=== PATIENT | male | born 1975 | race Hispanic/Latino ===

== ENCOUNTER 2018-08-18 10:17 | Inpatient (IN) | payer BC, SELFPAY ==
[2018-08-18] MEDS ORDERED: Acetaminophen 500 MG TAB ONE (10:55)
[2018-08-18] MEDS ORDERED: cefTRIAXone\\ROCEPHIN 1 GM VIAL ONE ×2 (10:55→11:29)
[2018-08-18] MEDS ORDERED: Sodium Chloride 0.9% 100 ML ONE ×2 (10:56→11:29)
[2018-08-18 11:10] LABS: ALT (SGPT) 55 U/L (8-55); AST (SGOT) 44 U/L (5-34); Albumin 3.7 g/dL (3.5-5.0); Alkaline Phosphatase 71 U/L (40-150); Anion Gap 20 mmol/L (10-20); BUN (Urea Nitrogen) 33 mg/dL (8.9-20.6); Bilirubin, Total 1.2 mg/dL (0.2-1.2); Calc. Creatinine Clearance 0 mL/min (70-130); Calcium 9.6 mg/dL (7.8-10.44); Carbon Dioxide 25 mmol/L (22-29); Chloride 100 mmol/L (98-107); Estimated GFR-MDRD 41; Globulin 4.2 g/dL (2.4-3.5); Glucose 142 mg/dL (70-105); Potassium 3.8 mmol/L (3.5-5.1); Protein, Total 7.9 g/dL (6.0-8.3); Sodium 141 mmol/L (136-145)
[2018-08-18 11:23] LABS: Bilirubin Negative (Negative); Blood, Urine Small (Negative); Clarity CLOUDY (Clear); Glucose, Urine (Dipstick) Negative (Negative); Leukocyte Negative (Negative); Nitrite Negative (Negative); Protein, Urine (Dipstick) 100 mg/dL (Neg-Trace); Specific Gravity, Urine 1.029 (1.002-1.036); pH, Urine 5.5 (5.0-9.0)
[2018-08-18 11:24] LABS: Bacteria/HPF None Seen HPF (None Seen); RBC/HPF 0-3 HPF (0-3)
[2018-08-18 11:26] LABS: Pathc Cast-AUWi Flag 6.83 (0-2.49); Yeast-AUWi Flag 101.4 (0-25.0)
[2018-08-18] MEDS ORDERED: Azithromycin 500 MG VIAL ONE (11:29)
--- NOTE | 2018-08-18 11:30 | RAD ---
SINGLE VIEW OF THE CHEST: COMPARISON: 08/18/2018. HISTORY: Pneumonia and cough. FINDINGS: A single view of the chest shows a normal-size cardiomediastinal silhouette. There is an infiltrate in the right lower lobe consistent with right lower lobe pneumonia. This has not changed compared to the prior exam. IMPRESSION: Stable right lower lobe pneumonia. POS: YOHANNES
[2018-08-18 11:36] LABS: Hyaline Casts/LPF 0-3 HYALINE CAST LPF (0-3 Hyaline); Other Casts/LPF 0-3 COARSE GRAN LPF (0-3 Hyaline); Yeast-All Forms None Seen HPF (None Seen)
[2018-08-18 11:37] LABS: Crystals/HPF 1+ AMORPH URATES HPF (Negative); WBC/HPF 0-3 HPF (0-3)
[2018-08-18 11:40] LABS: Band 34 % (5-11); Hemoglobin 14.6 g/dL (14.0-18.0); Large Platelets MODERATE; Lymphocytes 6 % (21-51); MDiff Complete? YES; Mean Corpuscular HGB CONC 32.8 g/dL (32.0-36.0); Mean Corpuscular Hemoglobin 29.6 pg (27.0-31.0); Mean Corpuscular Volume 90.2 fL (78.0-98.0); Metamyelocyte 6 % (0-0); Monocytes 18 % (0-10); Myelocyte 2 % (0-0); Neutrophil 30 % (42-75); Platelet Count 154 thou/uL (130-400); Platelet Morphology Comment Appears Decreased; RBC Distribution Width 12.2 % (11.5-14.5); RBC Morphology Normal; Reactive Lymphocytes 4 % (0-10); Red Blood Cell (RBC) Count 4.95 mill/uL (4.70-6.10); Toxic Granulation SLIGHT
--- NOTE | 2018-08-18 13:28 | HP ---
PRIMARY CARE PHYSICIAN: Dr. Elinor Patel. REASON FOR ADMISSION: Sepsis, acute kidney failure, community-acquired pneumonia. HISTORY OF PRESENT ILLNESS: A 42-year-old male, who has no significant past medical history, who is sick for about one week. He reports that last week seven days ago, one weekend, Monday and Monday; he started having upper respiratory infection symptoms with runny nose, sore throat. Subsequently, he was having dry cough. He was feeling congested in his nose. He was trying [id number] medication with Mucinex and Tylenol PM. He was also taking periodically Aleve morning and evening on daily basis. He was subsequently noticed that his sputum changed to yellowish brown in nature. On , he went to local urgent care and he was evaluated in Urgent Care and he was suspected for viral illness. He was not given any antibiotic prescription. On that day, the patient was having vomiting and in the evening time, he started having diarrhea which he had intermittently till today. night, he started having fever with chills. He was initially taking Tylenol and Motrin p.r.n. basis, but his condition continued to deteriorate yesterday and last night he was having high-grade fever. He started having pleuritic chest pain. He was also experiencing high myalgia, body ache and headache. He was also feeling dizziness. He denies any UTI symptoms. He denies any melena or hematochezia, but he does have diarrhea. The patient also reports that when they went to Urgent Care at that time, flu was checked, it was negative and today in our emergency room, flu was also negative. Today, the patient had a chest x-ray, which showed right lower lobe pneumonia. The patient also has associated bandemia, acute kidney injury, lactic acidosis. He is meeting sepsis criteria. He is tachycardic in the emergency room. We are admitting this patient for further care. REVIEW OF SYSTEMS: CONSTITUTIONAL: Negative for weight loss or gain, ability to conduct usual activities. SKIN: Negative for rash, itching. EYES: Negative for double vision, pain. ENT/MOUTH: Negative for nose bleeding, neck stiffness, pain, tenderness. CARDIOVASCULAR: Negative for palpitations, dyspnea on exertion, orthopnea. RESPIRATORY: Negative for shortness of breath, wheezing, cough, hemoptysis, fever or night sweats. GASTROINTESTINAL: Negative for poor appetite, abdominal pain, heartburn, nausea, vomiting, constipation, or diarrhea. GENITOURINARY: Negative for urgency, frequency, dysuria, nocturia. MUSCULOSKELETAL: Negative for pain, swelling. NEUROLOGIC/PSYCHIATRIC: Negative for anxiety, depression. ALLERGY/IMMUNOLOGIC: Negative for skin rash, bleeding tendency. Please see my HPI for pertinent positives and negatives. All other review of systems reviewed and negative except as mentioned in HPI. PAST MEDICAL HISTORY: History of nephrolithiasis, hypertension. PAST SURGICAL HISTORY: Herniated disk surgery. PAST PSYCHIATRIC HISTORY: Reviewed and negative. SOCIAL HISTORY: The patient drinks alcohol socially. He denies any smoking. He denies any other illicit drug abuse. He is . FAMILY HISTORY: No family history of coronary artery disease, stroke, or cancer. ALLERGIES: NO KNOWN DRUG ALLERGIES. CURRENT HOME MEDICATIONS: The patient was recently taking [id number] medication, but he is not taking any ongoing basis any medication. EMERGENCY ROOM COURSE: The patient has received Rocephin, azithromycin, DuoNeb therapy, Tylenol, and IV fluid. PHYSICAL EXAMINATION: VITAL SIGNS: On arrival; blood pressure 106/75, pulse 117, respiratory rate 28, temperature 99.6, and saturation 88% on room air, 92% on oxygen. Weight 119.29 kg. GENERAL: The patient is currently alert, awake, mild respiratory distress. HEENT: Head; normocephalic, atraumatic. Eyes; pupils round, reactive to light. Extraocular muscle intact. ENT; oropharynx within normal limits. Moist mucous membranes. No oral lesion. No pharyngeal erythema. No exudate. NECK: Supple. No JVD. No thyromegaly. No carotid bruit. LUNGS: Bibasilar rales noted more on the right side. No wheezing. No accessory muscles of respiration in use. CARDIAC: S1, S2 regular. Tachycardia. No murmur. No gallop. No rub. ABDOMEN: Obesity present. Bowel sounds present. Nontender. Nondistended. No organomegaly. No mass. No suprapubic tenderness. BACK: Unremarkable. No CVA tenderness. EXTREMITIES: Upper extremities, passive movement of all joints are normal; lower extremity, no edema. No calf tenderness. Good distal pulsation. SKIN: No skin rash. HEMATOLOGICAL SYSTEM: No lymphadenopathy. NEUROLOGIC: Nonfocal examination. PSYCHIATRIC: Normal affect. SIGNIFICANT LABORATORY DATA: EKG showing sinus tachycardia. Chest x-ray showing right lower lobe pneumonia. CBC; WBC 5.0, hemoglobin 14.6, platelet 154 with bandemia 34%. BMP; sodium 141, potassium 3.8, chloride 100, carbon dioxide 25, BUN 33, creatinine 1.84, glucose 142, calcium 9.6. LFT; AST 44, ALT 55, alkaline phosphatase 71, albumin 3.7. Lactic acid 4.3. Urinalysis unremarkable. ASSESSMENT AND PLAN: 1. Acute respiratory failure with hypoxia secondary to community-acquired pneumonia. The patient's oxygen saturation was 88% on room air and currently improved with nasal cannula oxygen. We will monitor his oxygen saturation and need for any oxygen requirement while in the hospital. 2. Acute kidney failure, likely due to prerenal etiology secondary to sepsis as well as his intermittent NSAID use. We will continue with IV fluid and we will repeat labs tomorrow. 3. Lactic acidosis, likely due to sepsis. We will repeat lactic acid later on today and as well as tomorrow morning. 4. Sepsis with acute organ dysfunction. The patient meets sepsis criteria with bandemia, tachycardia, tachypnea, fever, acute kidney failure, lactic acidosis and acute respiratory failure. The patient's source of infection is pneumonia, which is community-acquired pneumonia. The patient is already started on broad-spectrum antibiotic therapy with Rocephin and Levaquin. 5. Community-acquired pneumonia, right lower lobe, suspecting from streptococcus pneumoniae versus atypical pathogen. The patient will be given Rocephin and levofloxacin. We will continue with IV fluid. We will give him Solu-Medrol 40 mg IV q.8 hourly three doses. DuoNeb therapy will be given as needed. We will monitor on telemetry floor. 6. History of chronic low back pain. 7. History of morbid obesity. Dietary education given. Weight loss education given. 8. History of hypertension, but currently low blood pressure. We will monitor while in hospital. 9. DVT prophylaxis. Lovenox 40 mg subcu daily. 10. Gastrointestinal prophylaxis. Pepcid 20 mg p.o. b.i.d. CODE STATUS: The patient is full code. The patient's is surrogate decision maker. DISPOSITION PLAN: Based on clinical course, we are expecting the patient's stay in hospital more than 2 midnights. Plan of care discussed with the patient and his at bedside. We will also check urine Legionella and urine streptococcus pneumoniae antigen as well as viral panel. Job ID: [id number]
[2018-08-18] MEDS ORDERED: Acetaminophen 325 MG TAB PO PRN (14:20)
[2018-08-18] MEDS ORDERED: Ondansetron ODT 4 MG TAB SL PRN (14:20)
[2018-08-18] MEDS ORDERED: Ondansetron PF 4 MG/2 ML Vial IVP PRN (14:20)
[2018-08-18] MEDS ORDERED: Sodium Chloride 0.9% 1,000 ML IV SCH (14:20)
[2018-08-18] MEDS ORDERED: Sodium Chloride 0.65% Nasal 44 ML BOT EA NARE PRN (14:24)
[2018-08-18] MEDS ORDERED: Zolpidem Tartrate 5 MG TAB PO PRN (14:24)
[2018-08-18] MEDS ORDERED: Artificial Tears 18 DROP/0.9 ML EA EYE PRN (14:24)
[2018-08-18] MEDS ORDERED: Bisacodyl 5 MG TAB PO PRN (14:24)
[2018-08-18] MEDS ORDERED: Senokot S 8.6-50 MG TAB PO PRN (14:24)
[2018-08-18] MEDS ORDERED: Loratadine 10 MG TAB PO PRN (14:24)
[2018-08-18] MEDS ORDERED: Loperamide HCl 2 MG CAP PO PRN (14:24)
[2018-08-18] MEDS ORDERED: Bisacodyl 10 MG SUPP PR PRN (14:24)
[2018-08-18] MEDS ORDERED: Cepastat Lozenges 1 LOZ PO PRN (14:24)
[2018-08-18] MEDS ORDERED: Calcium Carbonate 500 MG ChewTAB PO PRN (14:24)
[2018-08-18] MEDS ORDERED: Eucerin (Mineral Oil/Petrolatum,White) 30 gm Jar TOP PRN (14:24)
[2018-08-18] MEDS ORDERED: hydrALAZINE 20 MG/ML VIAL SLOW IVP PRN (14:24)
[2018-08-18 15:14] LABS: Lactic Acid 3.9 mmol/L (0.5-2.2)
[2018-08-18] MEDS: Sodium Chloride 0.9% 1,000 ML IV SCH (16:01)
[2018-08-18] MEDS: methylPREDNISolone Sod Succ 40 MG VIAL IVP SCH ×2 (16:02→22:24)
[2018-08-18] MEDS: Acetaminophen 325 MG TAB PO PRN (16:10)
[2018-08-18] MEDS: Bacteriostatic Water 30 ML VIAL FS SCH ×2 (16:10→22:23)
[2018-08-18 17:23] LABS: Bilirubin Negative (Negative); Blood, Urine Trace (Negative); Clarity CLEAR (Clear); Glucose, Urine (Dipstick) Negative (Negative); Leukocyte Negative (Negative); Nitrite Negative (Negative); Protein, Urine (Dipstick) 100 mg/dL (Neg-Trace); Specific Gravity, Urine 1.022 (1.002-1.036)
[2018-08-18 17:26] LABS: Bacteria/HPF None Seen HPF (None Seen); Hyaline Casts/LPF 4-6 HYALINE CAST LPF (0-3 Hyaline); Pathc Cast-AUWi Flag 0.58 (0-2.49); Squamous Epithelial 0-3 HPF (0-3)
[2018-08-18 17:27] LABS: Yeast-AUWi Flag 136.9 (0-25.0)
[2018-08-18 17:40] LABS: Strep pneumo Urine Ag POSITIVE (NEGATIVE)
[2018-08-18 17:45] LABS: Crystals/HPF 1+ AMORPH URATES HPF (Negative); Yeast-All Forms None Seen HPF (None Seen)
[2018-08-18 17:49] LABS: Legionella Urinary Ag Negative (Negative)
[2018-08-18] MEDS: Famotidine 20 MG TAB PO SCH (20:47)
[2018-08-18] MEDS: guaiFENesin ER 600 MG TAB PO SCH (20:47)
[2018-08-18] MEDS: HYDROcodone/Acetaminophen 5/325 mg Tablet PO PRN (20:48)
[2018-08-19] MEDS: Sodium Chloride 0.9% 1,000 ML IV SCH ×3 (00:23→20:04)
[2018-08-19 05:50] LABS: Band 51 % (5-11); Hemoglobin 12.2 g/dL (14.0-18.0); Lymphocytes 11 % (21-51); MDiff Complete? YES; Mean Corpuscular HGB CONC 32.6 g/dL (32.0-36.0); Mean Corpuscular Hemoglobin 29.7 pg (27.0-31.0); Metamyelocyte 1 % (0-0); Monocytes 2 % (0-10); Neutrophil 35 % (42-75); Platelet Count 148 thou/uL (130-400); Platelet Morphology Comment Appears Adequate; RBC Distribution Width 12.4 % (11.5-14.5); White Blood Cell (WBC) Count 4.9 thou/uL (4.8-10.8)
[2018-08-19 05:56] LABS: Lactic Acid 2.1 mmol/L (0.5-2.2)
[2018-08-19 05:57] LABS: ALT (SGPT) 47 U/L (8-55); AST (SGOT) 39 U/L (5-34); Albumin 3.1 g/dL (3.5-5.0); Alkaline Phosphatase 56 U/L (40-150); Anion Gap 16 mmol/L (10-20); BUN (Urea Nitrogen) 21 mg/dL (8.9-20.6); Bilirubin, Total 0.6 mg/dL (0.2-1.2); Calc. Creatinine Clearance 153 mL/min (70-130); Calcium 8.7 mg/dL (7.8-10.44); Carbon Dioxide 21 mmol/L (22-29); Chloride 107 mmol/L (98-107); Estimated GFR-MDRD 75; Globulin 3.3 g/dL (2.4-3.5); Glucose 159 mg/dL (70-105); Potassium 3.6 mmol/L (3.5-5.1); Protein, Total 6.4 g/dL (6.0-8.3); Sodium 140 mmol/L (136-145)
[2018-08-19] MEDS: methylPREDNISolone Sod Succ 40 MG VIAL IVP SCH (06:25)
[2018-08-19] MEDS: Bacteriostatic Water 30 ML VIAL FS SCH (06:25)
[2018-08-19] MEDS: Famotidine 20 MG TAB PO SCH ×2 (09:14→20:03)
[2018-08-19] MEDS: guaiFENesin ER 600 MG TAB PO SCH ×2 (09:14→20:03)
[2018-08-19] MEDS: Enoxaparin Sodium 40 MG/0.4 ML SYRINGE SC SCH (09:15)
--- NOTE | 2018-08-19 10:07 | PDOC.PN ---
- Subjective Encounter Start Date: 08/19/18 Encounter Start Time: 07:15 -: old records requested/rev pt has cough, dyspnea, less pleuritic chest pain - Objective Resuscitation Status - Order Detail: 08/18/18 12:29 Resuscitation Status Routine Resuscitation Status: FULL: Full Resuscitation MAR Reviewed: Yes Vital Signs & Weight: Vital Signs (12 hours) Temp Pulse Resp BP BP Pulse Ox 08/19/18 07:25 98.3 F 90 18 128/73 94 L 08/19/18 07:07 94 L 08/19/18 07:05 91 20 08/19/18 04:20 97.5 F L 89 24 H 125/81 92 L 08/18/18 23:05 98.2 F 103 H 18 122/72 93 L Weight Weight 270 lb 9.6 oz I&O: 08/18/18 08/19/18 08/20/18 06:59 06:59 06:59 Intake Total 3110 Output Total 400 Balance 2710 Result Diagrams: 08/19/18 04:46 08/19/18 04:46 EKG Reviewed by me: Yes (nsr) Phys Exam - Physical Examination Constitutional: NAD HEENT: PERRLA, moist MMs, sclera anicteric Neck: no JVD, supple bilateral scattered rales+ Cardiovascular: RRR, no significant murmur, no rub Gastrointestinal: soft, non-tender, no distention, positive bowel sounds Musculoskeletal: no edema, pulses present Neurological: non-focal, normal sensation, moves all 4 limbs Lymphatic: no nodes Psychiatric: normal affect, A&O x 3 Skin: no rash, normal turgor Dx/Plan (1) Acute kidney failure Status: Acute (2) Acute respiratory failure with hypoxemia Code(s): J96.01 - ACUTE RESPIRATORY FAILURE WITH HYPOXIA Status: Acute (3) Bacteremia due to Streptococcus pneumoniae Code(s): R78.81 - BACTEREMIA Status: Acute (4) Infection due to human metapneumovirus (hMPV) Code(s): B97.81 - HUMAN METAPNEUMOVIRUS THE CAUSE OF DISEASES CLASSD ELSWHR Status: Acute (5) Lactic acidosis Code(s): E87.2 - ACIDOSIS Status: Acute (6) Sepsis with acute organ dysfunction Code(s): A41.9 - SEPSIS, UNSPECIFIED ORGANISM; R65.20 - SEVERE SEPSIS WITHOUT SEPTIC SHOCK Status: Acute (7) Streptococcal pneumonia Code(s): J15.4 - PNEUMONIA DUE TO OTHER STREPTOCOCCI Status: Acute (8) Obesity (BMI 30-39.9) Code(s): E66.9 - OBESITY, UNSPECIFIED Status: Chronic - Plan cont current plan of care, continue antibiotics, respiratory therapy * continue rocephin and levaquin * continue IVF * will repeat labs tomorrow * medication reviewed as below * symptomatic treatment. * will monitor Review of Systems - Review of Systems Constitutional: weakness. negative: fever, chills, sweats, malaise, other ENT: negative: Ear Pain, Ear Discharge, Nose Pain, Nose Discharge, Nose Congestion, Mouth Pain, Mouth Swelling, Throat Pain, Throat Swelling, Other Respiratory: Cough, Shortness of Breath, SOB with Excertion, Pleuritic Pain. negative: Dry, Hemoptysis, Sputum, Wheezing Cardiovascular: negative: chest pain, palpitations, orthopnea, paroxysmal nocturnal dyspnea, edema, light headedness, other Gastrointestinal: negative: Nausea, Vomiting, Abdominal Pain, Diarrhea, Constipation, Melena, Hematochezia, Other Genitourinary: negative: Dysuria, Frequency, Incontinence, Hematuria, Retention , Other Musculoskeletal: negative: Neck Pain, Shoulder Pain, Arm Pain, Back Pain, Hand Pain, Leg Pain, Foot Pain, Other - Medications/Allergies Allergies/Adverse Reactions: Allergies Allergy/AdvReac Type Severity Reaction Status Date / Time No Known Allergies Allergy Verified 08/18/18 14:29 Medications: Current Medications Acetaminophen (Tylenol) 650 mg PO Q4H PRN PRN Reason: Headache/Fever/Mild Pain (1-3) Last Admin: 08/18/18 16:10 Dose: 650 mg Hydrocodone Bitart/Acetaminophen ([place] 5/325) 1 tab PO Q4H PRN PRN Reason: Moderate Pain (4-6) Last Admin: 08/18/18 20:48 Dose: 1 tab Albuterol/Ipratropium (Duoneb) 3 ml NEB [id number] JOVANNA Last Admin: 08/19/18 07:05 Dose: 3 ml Albuterol/Ipratropium (Duoneb) 3 ml NEB [id number] PRN PRN Reason: SOB &/or Wheezing Artificial Tears (Tears Naturale) 2 drop EA EYE PRN PRN PRN Reason: Dry Eyes Bisacodyl (Dulcolax) 10 mg PO DAILYPRN PRN PRN Reason: Constipation Bisacodyl (Dulcolax) 10 mg [place] DAILYPRN PRN PRN Reason: Constipation Calcium Carbonate (Tums) 1,000 mg PO Q4H PRN PRN Reason: Heartburn or Indigestion Enoxaparin Sodium (Lovenox) 40 mg SC 0900 [facility] Last Admin: 08/19/18 09:15 Dose: 40 mg Famotidine (Pepcid) 20 mg PO BID [facility] Last Admin: 08/19/18 09:14 Dose: 20 mg Guaifenesin (Mucinex) 600 mg PO Q12HR [facility] Last Admin: 08/19/18 09:14 Dose: 600 mg Guaifenesin (Robitussin Sf) 200 mg PO Q4H PRN PRN Reason: Cough Hydralazine HCl (Apresoline) 10 mg SLOW IVP Q4H PRN PRN Reason: SBP > 180 and HR < 70 Ceftriaxone Sodium 2 gm/ (Sodium Chloride) 100 mls @ 200 mls/hr IVPB 1100 [facility] Levofloxacin 750 mg/ Device 150 mls @ 100 mls/hr IVPB 1500 [facility] Last Admin: 08/18/18 16:03 Dose: 150 mls Sodium Chloride (Normal Saline 0.9%) 1,000 mls @ 125 mls/hr IV .Q8H [facility] Last Admin: 08/19/18 09:14 Dose: 1,000 mls Loperamide HCl (Imodium) 2 mg PO PRN PRN PRN Reason: Diarrhea/Loose Stools Loratadine (Claritin) 10 mg PO DAILYPRN PRN PRN Reason: Sinus Symptoms Mineral Oil/White Petrolatum (Eucerin Cream) 0 gm TOP BIDPRN PRN PRN Reason: Dry Skin Senna/Docusate Sodium (Senokot S) 2 tab PO BID PRN PRN Reason: Constipation Sodium Chloride (Flush - Normal Saline) 10 ml IVF PRN PRN PRN Reason: Saline Flush Last Admin: 08/18/18 22:24 Dose: 10 ml Sodium Chloride ([place] Nasal [place] 0.65%) 0 ml EA NARE QIDPRN PRN PRN Reason: Nasal Congestion Throat Lozenges (Cepastat Lozenges) 1 chantal PO Q2H PRN PRN Reason: Sore Throat Zolpidem Tartrate (Ambien) 5 mg PO HSPRN PRN PRN Reason: Insomnia
[2018-08-19] MEDS: cefTRIAXone\\ROCEPHIN 2 GM in Sodium Chloride 0.9% 100 ML IVPB SCH (12:24)
[2018-08-20] MEDS: HYDROcodone/Acetaminophen 5/325 mg Tablet PO PRN ×2 (02:11→14:19)
[2018-08-20] MEDS: Sodium Chloride 0.9% 1,000 ML IV SCH (02:11)
[2018-08-20 06:15] LABS: Band 8 % (5-11); Hemoglobin 12.3 g/dL (14.0-18.0); Hypochromia SLIGHT = 6-15 cells (100X) (0-5/hpf); Lymphocytes 15 % (21-51); MDiff Complete? YES; Mean Corpuscular HGB CONC 32.6 g/dL (32.0-36.0); Mean Corpuscular Hemoglobin 29.7 pg (27.0-31.0); Mean Corpuscular Volume 91.1 fL (78.0-98.0); Mean Platelet Volume 9.1 fL (7.4-10.4); Monocytes 7 % (0-10); Neutrophil 70 % (42-75); Platelet Count 175 thou/uL (130-400); Platelet Morphology Comment Appears Adequate; RBC Distribution Width 12.4 % (11.5-14.5); Red Blood Cell (RBC) Count 4.15 mill/uL (4.70-6.10); White Blood Cell (WBC) Count 9.7 thou/uL (4.8-10.8)
[2018-08-20 06:20] LABS: ALT (SGPT) 45 U/L (8-55); AST (SGOT) 40 U/L (5-34); Alkaline Phosphatase 71 U/L (40-150); Anion Gap 14 mmol/L (10-20); BUN (Urea Nitrogen) 22 mg/dL (8.9-20.6); Bilirubin, Total 0.4 mg/dL (0.2-1.2); Calc. Creatinine Clearance 155 mL/min (70-130); Calcium 8.7 mg/dL (7.8-10.44); Carbon Dioxide 21 mmol/L (22-29); Chloride 109 mmol/L (98-107); Estimated GFR-MDRD 75; Globulin 3.6 g/dL (2.4-3.5); Glucose 149 mg/dL (70-105); Potassium 3.5 mmol/L (3.5-5.1); Protein, Total 6.6 g/dL (6.0-8.3); Sodium 140 mmol/L (136-145)
--- NOTE | 2018-08-20 09:42 | PDOC.PN ---
- Subjective Encounter Start Date: 08/20/18 Encounter Start Time: 08:20 Patient seen and examined. No new complaints. No overnight events has cough, no fever - Objective Resuscitation Status - Order Detail: 08/18/18 12:29 Resuscitation Status Routine Resuscitation Status: FULL: Full Resuscitation MAR Reviewed: Yes Vital Signs & Weight: Vital Signs (12 hours) Temp Pulse Resp BP Pulse Ox 08/20/18 07:20 97.5 F L 80 20 133/76 93 L 08/20/18 06:53 92 L 08/20/18 06:51 83 16 92 L 08/20/18 03:40 97.8 F 80 24 H 134/68 94 L Weight Weight 270 lb 9.6 oz I&O: 08/19/18 08/20/18 08/21/18 06:59 06:59 06:59 Intake Total 3110 4850 Output Total 400 1575 Balance 2710 3275 Result Diagrams: 08/20/18 04:56 08/20/18 04:56 EKG Reviewed by me: Yes (nsr) Phys Exam - Physical Examination Constitutional: NAD HEENT: PERRLA, moist MMs, sclera anicteric Neck: no JVD, supple Respiratory: no wheezing, no rhonchi rales+ Cardiovascular: RRR, no significant murmur, no rub Gastrointestinal: soft, non-tender, no distention, positive bowel sounds Musculoskeletal: no edema, pulses present Neurological: non-focal, normal sensation, moves all 4 limbs Lymphatic: no nodes Psychiatric: normal affect, A&O x 3 Skin: no rash, normal turgor Dx/Plan (1) Acute kidney failure Status: Resolved (2) Acute respiratory failure with hypoxemia Code(s): J96.01 - ACUTE RESPIRATORY FAILURE WITH HYPOXIA Status: Acute (3) Bacteremia due to Streptococcus pneumoniae Code(s): R78.81 - BACTEREMIA Status: Acute (4) Infection due to human metapneumovirus (hMPV) Code(s): B97.81 - HUMAN METAPNEUMOVIRUS THE CAUSE OF DISEASES CLASSD ELSWHR Status: Acute (5) Lactic acidosis Code(s): E87.2 - ACIDOSIS Status: Resolved (6) Sepsis with acute organ dysfunction Code(s): A41.9 - SEPSIS, UNSPECIFIED ORGANISM; R65.20 - SEVERE SEPSIS WITHOUT SEPTIC SHOCK Status: Acute (7) Streptococcal pneumonia Code(s): J15.4 - PNEUMONIA DUE TO OTHER STREPTOCOCCI Status: Acute (8) Obesity (BMI 30-39.9) Code(s): E66.9 - OBESITY, UNSPECIFIED Status: Chronic - Plan cont current plan of care, continue antibiotics * DC Tele * DC IVF * transfer to medical * continue rocephin and levaquin * tomorrow repeat chest xray * tomorrow repeat blood culture along with labs * medication reviewed as below * symptomatic treatment. Review of Systems - Review of Systems Constitutional: negative: fever, chills, sweats, weakness, malaise, other Respiratory: Cough, Shortness of Breath, SOB with Excertion. negative: Dry, Hemoptysis, Pleuritic Pain, Sputum, Wheezing Cardiovascular: negative: chest pain, palpitations, orthopnea, paroxysmal nocturnal dyspnea, edema, light headedness, other Gastrointestinal: negative: Nausea, Vomiting, Abdominal Pain, Diarrhea, Constipation, Melena, Hematochezia, Other Genitourinary: negative: Dysuria, Frequency, Incontinence, Hematuria, Retention , Other Musculoskeletal: negative: Neck Pain, Shoulder Pain, Arm Pain, Back Pain, Hand Pain, Leg Pain, Foot Pain, Other Skin: negative: Rash, Lesions, Ant, Bruising, Other - Medications/Allergies Allergies/Adverse Reactions: Allergies Allergy/AdvReac Type Severity Reaction Status Date / Time No Known Allergies Allergy Verified 08/18/18 14:29 Medications: Current Medications Acetaminophen (Tylenol) 650 mg PO Q4H PRN PRN Reason: Headache/Fever/Mild Pain (1-3) Last Admin: 08/18/18 16:10 Dose: 650 mg Hydrocodone Bitart/Acetaminophen ([place] 5/325) 1 tab PO Q4H PRN PRN Reason: Moderate Pain (4-6) Last Admin: 08/20/18 02:11 Dose: 1 tab Albuterol/Ipratropium (Duoneb) 3 ml NEB [id number] JOVANNA Last Admin: 08/20/18 06:51 Dose: 3 ml Albuterol/Ipratropium (Duoneb) 3 ml NEB [id number] PRN PRN Reason: SOB &/or Wheezing Artificial Tears (Tears Naturale) 2 drop EA EYE PRN PRN PRN Reason: Dry Eyes Bisacodyl (Dulcolax) 10 mg PO DAILYPRN PRN PRN Reason: Constipation Bisacodyl (Dulcolax) 10 mg [place] DAILYPRN PRN PRN Reason: Constipation Calcium Carbonate (Tums) 1,000 mg PO Q4H PRN PRN Reason: Heartburn or Indigestion Enoxaparin Sodium (Lovenox) 40 mg SC 0900 [facility] Last Admin: 08/19/18 09:15 Dose: 40 mg Famotidine (Pepcid) 20 mg PO BID [facility] Last Admin: 08/19/18 20:03 Dose: 20 mg Guaifenesin (Mucinex) 600 mg PO Q12HR [facility] Last Admin: 08/19/18 20:03 Dose: 600 mg Guaifenesin (Robitussin Sf) 200 mg PO Q4H PRN PRN Reason: Cough Hydralazine HCl (Apresoline) 10 mg SLOW IVP Q4H PRN PRN Reason: SBP > 180 and HR < 70 Ceftriaxone Sodium 2 gm/ (Sodium Chloride) 100 mls @ 200 mls/hr IVPB 1100 [facility] Last Admin: 08/19/18 12:24 Dose: 100 mls Levofloxacin 750 mg/ Device 150 mls @ 100 mls/hr IVPB 1500 [facility] Last Admin: 08/19/18 14:50 Dose: 150 mls Loperamide HCl (Imodium) 2 mg PO PRN PRN PRN Reason: Diarrhea/Loose Stools Loratadine (Claritin) 10 mg PO DAILYPRN PRN PRN Reason: Sinus Symptoms Mineral Oil/White Petrolatum (Eucerin Cream) 0 gm TOP BIDPRN PRN PRN Reason: Dry Skin Senna/Docusate Sodium (Senokot S) 2 tab PO BID PRN PRN Reason: Constipation Sodium Chloride (Flush - Normal Saline) 10 ml IVF PRN PRN PRN Reason: Saline Flush Last Admin: 08/18/18 22:24 Dose: 10 ml Sodium Chloride ([place] Nasal [place] 0.65%) 0 ml EA NARE QIDPRN PRN PRN Reason: Nasal Congestion Throat Lozenges (Cepastat Lozenges) 1 chantal PO Q2H PRN PRN Reason: Sore Throat Zolpidem Tartrate (Ambien) 5 mg PO HSPRN PRN PRN Reason: Insomnia
[2018-08-20] MEDS: guaiFENesin ER 600 MG TAB PO SCH ×2 (09:59→20:03)
[2018-08-20] MEDS: Famotidine 20 MG TAB PO SCH ×2 (09:59→20:04)
[2018-08-20] MEDS: Enoxaparin Sodium 40 MG/0.4 ML SYRINGE SC SCH (09:59)
[2018-08-20] MEDS: cefTRIAXone\\ROCEPHIN 2 GM in Sodium Chloride 0.9% 100 ML IVPB SCH (10:01)
[2018-08-20 13:08] VITALS: BMI 39.9
[2018-08-20] MEDS: Diabetic Tussin 200 MG/10 ML UDCUP PO PRN (15:01)
[2018-08-21 07:58] LABS: Anion Gap 12 mmol/L (10-20); BUN (Urea Nitrogen) 19 mg/dL (8.9-20.6); Calc. Creatinine Clearance 162 mL/min (70-130); Calcium 9.1 mg/dL (7.8-10.44); Carbon Dioxide 22 mmol/L (22-29); Chloride 104 mmol/L (98-107); Estimated GFR-MDRD 79; Glucose 83 mg/dL (70-105); Potassium 3.4 mmol/L (3.5-5.1); Sodium 135 mmol/L (136-145)
[2018-08-21 08:02] LABS: Hemoglobin 13.6 g/dL (14.0-18.0); Mean Corpuscular Volume 90.7 fL (78.0-98.0); Mean Platelet Volume 8.6 fL (7.4-10.4); Platelet Count 215 thou/uL (130-400); RBC Distribution Width 12.5 % (11.5-14.5); Red Blood Cell (RBC) Count 4.68 mill/uL (4.70-6.10); White Blood Cell (WBC) Count 13.4 thou/uL (4.8-10.8)
[2018-08-21 08:48] LABS: Band 14 % (5-11); Lymphocytes 12 % (21-51); MDiff Complete? YES; Metamyelocyte 3 % (0-0); Monocytes 4 % (0-10); Myelocyte 4 % (0-0); Neutrophil 55 % (42-75); Platelet Morphology Comment Appears Adequate; Polychromasia SLIGHT = 2-3 cells (100X) (0-2/hpf); Reactive Lymphocytes 8 % (0-10)
[2018-08-21] MEDS: Famotidine 20 MG TAB PO SCH ×2 (09:01→20:25)
[2018-08-21] MEDS: Diabetic Tussin 200 MG/10 ML UDCUP PO PRN (09:01)
[2018-08-21] MEDS: guaiFENesin ER 600 MG TAB PO SCH ×2 (09:01→20:25)
[2018-08-21] MEDS: Enoxaparin Sodium 40 MG/0.4 ML SYRINGE SC SCH (09:02)
--- NOTE | 2018-08-21 09:24 | RAD ---
TWO VIEW CHEST: Indications: Pneumonia. Follow up. Comparison: 08-18-18 FINDINGS: Diffuse alveolar infiltrates throughout the right mid and lower lung. Patchy alveolar infiltrate in t he left lung base. There is evidence of right upper, right middle, and right lower lobe infiltrate. IMPRESSION: Bilateral infiltrates, more extensive on the right. POS: [facility]
--- NOTE | 2018-08-21 10:03 | PDOC.PN ---
- Subjective Encounter Start Date: 08/21/18 Encounter Start Time: 09:00 last night pt had mild epistaxis, still has pleuritic discomfort and has cough, still needs oxygen, - Objective Resuscitation Status - Order Detail: 08/18/18 12:29 Resuscitation Status Routine Resuscitation Status: FULL: Full Resuscitation MAR Reviewed: Yes Vital Signs & Weight: Vital Signs (12 hours) Temp Pulse Resp BP Pulse Ox 08/21/18 08:57 98.8 F 08/21/18 07:35 99.7 F H 93 18 141/84 H 90 L 08/21/18 07:14 81 14 08/21/18 00:00 99.2 F 90 18 134/84 95 08/20/18 22:12 90 16 93 L Weight Admit Weight 270 lb 9.6 oz Weight 270 lb 9.6 oz I&O: 08/20/18 08/21/18 08/22/18 06:59 06:59 06:59 Intake Total 4850 1250 Output Total 1575 Balance 3275 1250 Result Diagrams: 08/21/18 07:20 08/21/18 07:20 Radiology Reviewed by me: Yes (chest xray bilateral right >left infiltration) Phys Exam - Physical Examination Constitutional: NAD HEENT: PERRLA, moist MMs, sclera anicteric Neck: no JVD, supple Respiratory: no wheezing, no rhonchi bilateral rales, reduced air entry Cardiovascular: RRR, no significant murmur, no rub Gastrointestinal: soft, non-tender, no distention, positive bowel sounds Musculoskeletal: no edema, pulses present Neurological: non-focal, normal sensation Lymphatic: no nodes Psychiatric: normal affect, A&O x 3 Skin: no rash, normal turgor Dx/Plan (1) Acute kidney failure Status: Resolved (2) Acute respiratory failure with hypoxemia Code(s): J96.01 - ACUTE RESPIRATORY FAILURE WITH HYPOXIA Status: Acute (3) Bacteremia due to Streptococcus pneumoniae Code(s): R78.81 - BACTEREMIA Status: Acute (4) Infection due to human metapneumovirus (hMPV) Code(s): B97.81 - HUMAN METAPNEUMOVIRUS THE CAUSE OF DISEASES CLASSD ELSWHR Status: Acute (5) Lactic acidosis Code(s): E87.2 - ACIDOSIS Status: Resolved (6) Sepsis with acute organ dysfunction Code(s): A41.9 - SEPSIS, UNSPECIFIED ORGANISM; R65.20 - SEVERE SEPSIS WITHOUT SEPTIC SHOCK Status: Acute (7) Streptococcal pneumonia Code(s): J15.4 - PNEUMONIA DUE TO OTHER STREPTOCOCCI Status: Acute (8) Obesity (BMI 30-39.9) Code(s): E66.9 - OBESITY, UNSPECIFIED Status: Chronic (9) Epistaxis Code(s): R04.0 - EPISTAXIS Status: Acute - Plan cont current plan of care, plan discussed w/ family, continue antibiotics, respiratory therapy * will Dc lovenox for now due to epistaxis * will give oxygen moisturized * will add flonase nasal spray and afrin nasal spray * continue rocephin and levaquin * monitor for need for oxygen * he is not ready for discharge * discussed with * medication reviewed as below * symptomatic treatment Review of Systems - Review of Systems ENT: Nose Congestion. negative: Ear Pain, Ear Discharge, Nose Pain, Nose Discharge, Mouth Pain, Mouth Swelling, Throat Pain, Throat Swelling, Other Respiratory: Cough, Shortness of Breath, Pleuritic Pain. negative: Dry, Hemoptysis, SOB with Excertion, Sputum, Wheezing Cardiovascular: negative: chest pain, palpitations, orthopnea, paroxysmal nocturnal dyspnea, edema, light headedness, other Gastrointestinal: negative: Nausea, Vomiting, Abdominal Pain, Diarrhea, Constipation, Melena, Hematochezia, Other Genitourinary: negative: Dysuria, Frequency, Incontinence, Hematuria, Retention , Other Musculoskeletal: negative: Neck Pain, Shoulder Pain, Arm Pain, Back Pain, Hand Pain, Leg Pain, Foot Pain, Other Skin: negative: Rash, Lesions, Ant, Bruising, Other - Medications/Allergies Allergies/Adverse Reactions: Allergies Allergy/AdvReac Type Severity Reaction Status Date / Time No Known Allergies Allergy Verified 08/18/18 14:29 Medications: Current Medications Acetaminophen (Tylenol) 650 mg PO Q4H PRN PRN Reason: Headache/Fever/Mild Pain (1-3) Last Admin: 08/18/18 16:10 Dose: 650 mg Hydrocodone Bitart/Acetaminophen ([place] 5/325) 1 tab PO Q4H PRN PRN Reason: Moderate Pain (4-6) Last Admin: 08/20/18 14:19 Dose: 1 tab Albuterol/Ipratropium (Duoneb) 3 ml NEB [id number] [facility] Last Admin: 08/21/18 07:14 Dose: 3 ml Albuterol/Ipratropium (Duoneb) 3 ml NEB [id number] PRN PRN Reason: SOB &/or Wheezing Artificial Tears (Tears Naturale) 2 drop EA EYE PRN PRN PRN Reason: Dry Eyes Bisacodyl (Dulcolax) 10 mg PO DAILYPRN PRN PRN Reason: Constipation Bisacodyl (Dulcolax) 10 mg [place] DAILYPRN PRN PRN Reason: Constipation Calcium Carbonate (Tums) 1,000 mg PO Q4H PRN PRN Reason: Heartburn or Indigestion Enoxaparin Sodium (Lovenox) 40 mg SC 0900 [facility] Last Admin: 08/21/18 09:02 Dose: 40 mg Famotidine (Pepcid) 20 mg PO BID [facility] Last Admin: 08/21/18 09:01 Dose: 20 mg Guaifenesin (Mucinex) 600 mg PO Q12HR [facility] Last Admin: 08/21/18 09:01 Dose: 600 mg Guaifenesin (Robitussin Sf) 200 mg PO Q4H PRN PRN Reason: Cough Last Admin: 08/21/18 09:01 Dose: 200 mg Hydralazine HCl (Apresoline) 10 mg SLOW IVP Q4H PRN PRN Reason: SBP > 180 and HR < 70 Ceftriaxone Sodium 2 gm/ (Sodium Chloride) 100 mls @ 200 mls/hr IVPB 1100 [facility] Last Admin: 08/20/18 10:01 Dose: 100 mls Levofloxacin 750 mg/ Device 150 mls @ 100 mls/hr IVPB 1500 [facility] Last Admin: 08/20/18 14:21 Dose: 150 mls Loperamide HCl (Imodium) 2 mg PO PRN PRN PRN Reason: Diarrhea/Loose Stools Loratadine (Claritin) 10 mg PO DAILYPRN PRN PRN Reason: Sinus Symptoms Mineral Oil/White Petrolatum (Eucerin Cream) 0 gm TOP BIDPRN PRN PRN Reason: Dry Skin Senna/Docusate Sodium (Senokot S) 2 tab PO BID PRN PRN Reason: Constipation Sodium Chloride (Flush - Normal Saline) 10 ml IVF PRN PRN PRN Reason: Saline Flush Last Admin: 08/18/18 22:24 Dose: 10 ml Sodium Chloride ([place] Nasal [place] 0.65%) 0 ml EA NARE QIDPRN PRN PRN Reason: Nasal Congestion Throat Lozenges (Cepastat Lozenges) 1 chantal PO Q2H PRN PRN Reason: Sore Throat Zolpidem Tartrate (Ambien) 5 mg PO HSPRN PRN PRN Reason: Insomnia
[2018-08-21] MEDS: cefTRIAXone\\ROCEPHIN 2 GM in Sodium Chloride 0.9% 100 ML IVPB SCH (11:16)
[2018-08-21] MEDS: HYDROcodone/Acetaminophen 5/325 mg Tablet PO PRN ×2 (11:19→20:24)
[2018-08-21 11:55] LABS: Actual Bicarbonate (HCO3a) 24.6 mEq/L (22-28); Base Excess (BEa) 1.2 mEq/L (-2.0 to +3.0); CO2 Tension 35.1 mmHg (35.0-45.0); Calcium, Ionized 1.13 mmol/L (1.12-1.30); Carboxyhemoglobin (COHb) 1.1 gm% (0.0-3.0); Hemoglobin (Hb) 13.4 g/dL (14.0-18.0); Potassium - ABG Lab 3.17 mmol/L (3.70-5.30); pH, Arterial 7.46 (7.35-7.45)
[2018-08-21 12:00] LABS: O2 Tension (PaO2) 58.7 mmHg (80.0-100.0)
[2018-08-21 12:01] LABS: ALV-art Gradient 182.625 (0-20)
[2018-08-21] MEDS ORDERED: Furosemide 40 MG/4 ML VIAL SLOW IVP SCH (12:15)
--- NOTE | 2018-08-21 12:36 | PDOC.PULCN ---
Pulmonology Consult: HPI - Date of Consult Date: 08/21/18 Time: 12:00 - Consult Details Reason for Consult: PNA Requesting Physician: Kendell - History of Present Illness HPI: CALVIN OSEI is a 42 year-old M who came in for 7 days of cough and shortness of breath and was found to have pneumococcal pneumonia. He has PMH of obesity, HTN, or nephrolithiasis. This is hospital day 2 and the patient has continued to worsen despite treatment. He states he is tired with any sort of exertions and still coughing with mucous production. He denies fevers, chills, or sweats. He has been on NC for the course of the stay and is still satting in the low 90s. He states he has had decreased appetite, but no vomiting during this stay. Patient states he is having soft stools x2 per day, states he had a dark black stool today which was more formed. Pulmonology Consult: ROS - Review of Systems All systems: reviewed and no additional remarkable complaints except as stated ( see hpi for notable exceptiosn) Constitutional: weakness, malaise. negative: fever, chills, sweats Cardiovascular: negative: chest pain, palpitations, orthopnea Respiratory: cough, exercise intolerance, productive cough, short of breath. negative: bloody sputum, congestion, wheezing Pulmonology Consult: PMH Source: patient Past Medical History: htn - Family History Pertinent family history: non-contributory - Social History Smoking Status: Never smoker Alcohol Use: occasional Drug Use History: none Living Situation: independent, Pulmonology Consult: Meds - Medications MAR Reviewed: Yes Medications: Current Medications Acetaminophen (Tylenol) 650 mg PO Q4H PRN PRN Reason: Headache/Fever/Mild Pain (1-3) Last Admin: 08/18/18 16:10 Dose: 650 mg Hydrocodone Bitart/Acetaminophen ([place] 5/325) 1 tab PO Q4H PRN PRN Reason: Moderate Pain (4-6) Last Admin: 08/21/18 11:19 Dose: 1 tab Albuterol/Ipratropium (Duoneb) 3 ml NEB [id number] [facility] Last Admin: 08/21/18 07:14 Dose: 3 ml Albuterol/Ipratropium (Duoneb) 3 ml NEB [id number] PRN PRN Reason: SOB &/or Wheezing Artificial Tears (Tears Naturale) 2 drop EA EYE PRN PRN PRN Reason: Dry Eyes Bisacodyl (Dulcolax) 10 mg PO DAILYPRN PRN PRN Reason: Constipation Bisacodyl (Dulcolax) 10 mg [place] DAILYPRN PRN PRN Reason: Constipation Calcium Carbonate (Tums) 1,000 mg PO Q4H PRN PRN Reason: Heartburn or Indigestion Famotidine (Pepcid) 20 mg PO BID [facility] Last Admin: 08/21/18 09:01 Dose: 20 mg Fluticasone Propionate (Flonase Nasal [place]) 0 gm NASAL DAILY [facility] Furosemide (Lasix) 40 mg SLOW IVP ONE [facility] Guaifenesin (Mucinex) 600 mg PO Q12HR [facility] Last Admin: 08/21/18 09:01 Dose: 600 mg Guaifenesin (Robitussin Sf) 200 mg PO Q4H PRN PRN Reason: Cough Last Admin: 08/21/18 09:01 Dose: 200 mg Hydralazine HCl (Apresoline) 10 mg SLOW IVP Q4H PRN PRN Reason: SBP > 180 and HR < 70 Ceftriaxone Sodium 2 gm/ (Sodium Chloride) 100 mls @ 200 mls/hr IVPB 1100 [facility] Last Admin: 08/21/18 11:16 Dose: 100 mls Ascorbic Acid 1,500 mg/ Sodium (Chloride) 53 mls @ 100 mls/hr IVPB Q6HR [facility] Thiamine HCl 200 mg/ Sodium (Chloride) 52 mls @ 100 mls/hr IVPB Q12HR [facility] Loperamide HCl (Imodium) 2 mg PO PRN PRN PRN Reason: Diarrhea/Loose Stools Loratadine (Claritin) 10 mg PO DAILYPRN PRN PRN Reason: Sinus Symptoms Methylprednisolone Sodium Succinate (Solu-Medrol) 40 mg IVP Q6HR [facility] Mineral Oil/White Petrolatum (Eucerin Cream) 0 gm TOP BIDPRN PRN PRN Reason: Dry Skin Oxymetazoline HCl (Oxymetazoline Hcl) 1 sprays NASAL BID [facility] Senna/Docusate Sodium (Senokot S) 2 tab PO BID PRN PRN Reason: Constipation Sodium Chloride (Flush - Normal Saline) 10 ml IVF PRN PRN PRN Reason: Saline Flush Last Admin: 08/18/18 22:24 Dose: 10 ml Sodium Chloride ([place] Nasal [place] 0.65%) 0 ml EA NARE QIDPRN PRN PRN Reason: Nasal Congestion Throat Lozenges (Cepastat Lozenges) 1 chantal PO Q2H PRN PRN Reason: Sore Throat Zolpidem Tartrate (Ambien) 5 mg PO HSPRN PRN PRN Reason: Insomnia - Allergies Allergies/Adverse Reactions: Allergies Allergy/AdvReac Type Severity Reaction Status Date / Time No Known Allergies Allergy Verified 08/18/18 14:29 Pulmonology Consult: PE - Physical Exam Constitutional: NAD HEENT: PERRLA, moist MMs Neck: no nodes Cardiovascular: RRR, no significant murmur Respiratory: rhonchi (bilaterally), wheezes (mild expiratory wheeze). negative : accessory muscle use, respiratory distress, stridor Gastrointestinal: soft, non-tender, no distention, positive bowel sounds Musculoskeletal: no edema, pulses present Neurological: non-focal, moves all 4 limbs Psychiatric: normal affect, A&O x 3 Skin: no rash, cap refill <2 seconds Pulmonology Consult: Results - Labs Result Diagrams: 08/21/18 07:20 08/21/18 07:20 - ABG Interpretation ABG Results: ABG pH 7.46 (7.35-7.45) H 08/21/18 11:50 ABG pCO2 35.1 mmHg (35.0-45.0) 08/21/18 11:50 ABG O2 Sat Calc/[place] 91.5 % (94.0-98.0) L 08/21/18 11:50 ABG Base Excess 1.2 mEq/L (-2.0 to +3.0) 08/21/18 11:50 Pulmonology Consult: A/P - Problem (1) Epistaxis Current Visit: Yes Code(s): R04.0 - EPISTAXIS Status: Acute (2) Acute respiratory failure with hypoxemia Current Visit: No Code(s): J96.01 - ACUTE RESPIRATORY FAILURE WITH HYPOXIA Status: Acute (3) Bacteremia due to Streptococcus pneumoniae Current Visit: No Code(s): R78.81 - BACTEREMIA Status: Acute (4) Streptococcal pneumonia Current Visit: No Code(s): J15.4 - PNEUMONIA DUE TO OTHER STREPTOCOCCI Status: Acute - Time Time: 50% of the time was spent in coordination of care (as documented) at patient's floor/unit and/or counseling patient. Time with Patient: greater than 50 minutes - Plan Plan: This is a 42 yo M being treated for streptococcal pneumonia. He has a pertinent history including: HTN Consults: pulm [employer] () - AxOx3 Resp (strep pneumonia, acute hypoxic resp failure) - ABG: pending - satting low 90s on 4L - strep pneumonia campbell-sensitive, will stop levo and continue with rocephin - add solumedrol 40mg q6hrs - cont duonebs - one time dose 40mg lasix - transfer to IMCU in case oxygen requirements would increase CV (fluid retention) - bp 130/70 - trace edema at the ankles - will check echo to r/o cardiomyopathy GI () Hematologic () /Renal () - Cr 1.04 Infection () - Lactic acid 4.3 -> 3.9 -> 2.1 - cont rocephin, stop levofloxacin - add thiamine, vit C for sepsis Endo () Lines/Tubes: iv Code status: full PPx: scd, lovenox, pepcid Patient was seen and examined with Dr. Quinones. I have reviewed all aspects of the patient's history, chest radiographs, and laboratory reports. This is a 42- year-old male with pneumococcal pneumonia that is affecting both lungs. He has developed severe hypoxemia that is worsened with exertion. Pneumococcal pneumonia has been confirmed on cultures and the organism is sensitive to all antibiotics being administered. He has also tested positive for a virus -I am not sure if this is pertinent to his current issues or not. The patient is being transferred to intermediate care for more close observation. He may require high-flow oxygen. I do not think that he is in need of mechanical ventilation at this time, but certainly he does have a small chance of that happening in the next 24 hr. His antibiotic coverage can be reduced to Rocephin only. We are adding steroids, vitamin-C, and thiamine. He will be given 1 dose of Lasix because of developing edema. We will check an echocardiogram to make sure his cardiac status is appropriate. Ruben Mckeon MD
[2018-08-21] MEDS: methylPREDNISolone Sod Succ 40 MG VIAL IVP SCH ×2 (18:10→23:39)
[2018-08-21] MEDS: Acetaminophen 325 MG TAB PO PRN (18:49)
[2018-08-21] MEDS: Oxymetazoline HCl 0.05% ( 15 ML ) NASAL SCH (21:07)
[2018-08-22] MEDS: HYDROcodone/Acetaminophen 5/325 mg Tablet PO PRN ×2 (05:27→21:58)
[2018-08-22] MEDS: methylPREDNISolone Sod Succ 40 MG VIAL IVP SCH ×4 (05:28→23:53)
[2018-08-22 06:11] LABS: Anion Gap 14 mmol/L (10-20); BUN (Urea Nitrogen) 18 mg/dL (8.9-20.6); Calc. Creatinine Clearance 169 mL/min (70-130); Calcium 8.8 mg/dL (7.8-10.44); Carbon Dioxide 25 mmol/L (22-29); Chloride 105 mmol/L (98-107); Estimated GFR-MDRD 82; Glucose 138 mg/dL (70-105); Potassium 3.9 mmol/L (3.5-5.1); Sodium 140 mmol/L (136-145)
[2018-08-22 06:24] LABS: Band 4 % (5-11); Hemoglobin 13.2 g/dL (14.0-18.0); Hypochromia SLIGHT = 6-15 cells (100X) (0-5/hpf); Lymphocytes 18 % (21-51); MDiff Complete? YES; Mean Corpuscular HGB CONC 33.1 g/dL (32.0-36.0); Mean Corpuscular Hemoglobin 29.7 pg (27.0-31.0); Mean Corpuscular Volume 89.5 fL (78.0-98.0); Mean Platelet Volume 9.1 fL (7.4-10.4); Monocytes 1 % (0-10); Neutrophil 77 % (42-75); Platelet Count 202 thou/uL (130-400); Platelet Morphology Comment Appears Adequate; RBC Distribution Width 12.3 % (11.5-14.5); Red Blood Cell (RBC) Count 4.43 mill/uL (4.70-6.10); White Blood Cell (WBC) Count 14.2 thou/uL (4.8-10.8)
--- NOTE | 2018-08-22 08:09 | RAD ---
SINGLE VIEW OF THE CHEST: COMPARISON: 08/18/2018. HISTORY: Ventilated patient with respiratory failure. FINDINGS: A single view of the chest shows a normal-size cardiomediastinal silhouette. An infiltrate is seen i n the right lower lobe which appears to have worsened compared to the prior exam. An adjacent pleura l effusion may or may not be present. IMPRESSION: Worsening right lower lobe pneumonia. POS: [facility]
--- NOTE | 2018-08-22 08:57 | PRG ---
DATE OF SERVICE: 08/22/2018 SUBJECTIVE: Mr. Cuevas feels much better today. He has been weaned down to nasal cannula. OBJECTIVE: VITAL SIGNS: His temperature is 97.6, pulse 87, respirations 16, O2 saturation in the upper 90s on 3 L nasal cannula. HEENT: Unremarkable. NECK: No JVD. LUNGS: Inspiratory crackles in the bases. CARDIAC: S1 and S2, regular. ABDOMEN: Soft. EXTREMITIES: No edema. LABORATORY DATA: White blood cell count 14.3, with 77% neutrophils, 4% bands, hematocrit 39.7, and platelet count 202. Sodium 140, potassium 3.9, chloride 105, CO2 of 25, BUN 18, creatinine 1.0, and glucose 138. His x-ray does not show a whole lot change from yesterday. Echocardiogram demonstrates EF of 60% to 65% with mild mitral regurgitation. ASSESSMENT: Pneumococcal pneumonia with clinical improvement despite persistent changes on the chest x-ray. Typically, the x-ray will lag behind clinical improvement we see. His improvement in oxygenation is probably the best sign that we are on the right track. RECOMMENDATIONS: 1. Continue with the Rocephin, steroids, vitamin C, and thiamine. 2. We would leave in the IMCU today and hopefully, transfer to the floor tomorrow if he does well. Job ID: [id number]
[2018-08-22] MEDS: Famotidine 20 MG TAB PO SCH ×2 (10:21→21:59)
[2018-08-22] MEDS: guaiFENesin ER 600 MG TAB PO SCH ×2 (10:25→21:59)
[2018-08-22] MEDS: Fluticasone Propionate Nasal Spray 16 gm Bottle NASAL SCH (10:25)
[2018-08-22] MEDS: Oxymetazoline HCl 0.05% ( 15 ML ) NASAL SCH ×2 (10:25→21:59)
[2018-08-22] MEDS: cefTRIAXone\\ROCEPHIN 2 GM in Sodium Chloride 0.9% 100 ML IVPB SCH (11:03)
--- NOTE | 2018-08-22 11:42 | PDOC.PN ---
- Subjective Encounter Start Date: 08/22/18 Encounter Start Time: 08:40 Patient seen and examined. No new complaints. No overnight events pt subjectively feels better - Objective Resuscitation Status - Order Detail: 08/18/18 12:29 Resuscitation Status Routine Resuscitation Status: FULL: Full Resuscitation MAR Reviewed: Yes Vital Signs & Weight: Vital Signs (12 hours) Temp Pulse Resp Pulse Ox 08/22/18 08:10 97 08/22/18 08:06 87 16 99 08/22/18 08:00 99 08/22/18 04:25 97.6 F 08/22/18 00:46 97.5 F L Weight Admit Weight 270 lb 9.6 oz Weight 270 lb 9.6 oz Most Recent Monitor Data Heart Rate from ECG 98 NIBP 141/77 NIBP BP-Mean 98 Respiration from ECG 29 SpO2 100 I&O: 08/21/18 08/22/18 08/23/18 06:59 06:59 06:59 Intake Total 1250 610 Output Total 800 Balance 1250 -190 Result Diagrams: 08/22/18 04:49 08/22/18 04:49 Radiology Reviewed by me: Yes (chest xray reviewed) EKG Reviewed by me: Yes (nsr) Phys Exam - Physical Examination Constitutional: NAD HEENT: PERRLA, moist MMs, sclera anicteric Neck: no JVD, supple Respiratory: no wheezing, no rhonchi right side rales+ Cardiovascular: RRR, no significant murmur, no rub Gastrointestinal: soft, non-tender, no distention, positive bowel sounds Musculoskeletal: no edema, pulses present Neurological: non-focal, normal sensation, moves all 4 limbs Lymphatic: no nodes Psychiatric: normal affect, A&O x 3 Skin: no rash, normal turgor Dx/Plan (1) Acute kidney failure Status: Resolved (2) Acute respiratory failure with hypoxemia Code(s): J96.01 - ACUTE RESPIRATORY FAILURE WITH HYPOXIA Status: Acute (3) Bacteremia due to Streptococcus pneumoniae Code(s): R78.81 - BACTEREMIA Status: Acute (4) Infection due to human metapneumovirus (hMPV) Code(s): B97.81 - HUMAN METAPNEUMOVIRUS THE CAUSE OF DISEASES CLASSD ELSWHR Status: Acute (5) Lactic acidosis Code(s): E87.2 - ACIDOSIS Status: Resolved (6) Sepsis with acute organ dysfunction Code(s): A41.9 - SEPSIS, UNSPECIFIED ORGANISM; R65.20 - SEVERE SEPSIS WITHOUT SEPTIC SHOCK Status: Acute (7) Streptococcal pneumonia Code(s): J15.4 - PNEUMONIA DUE TO OTHER STREPTOCOCCI Status: Acute (8) Obesity (BMI 30-39.9) Code(s): E66.9 - OBESITY, UNSPECIFIED Status: Chronic (9) Epistaxis Code(s): R04.0 - EPISTAXIS Status: Acute - Plan cont current plan of care, plan discussed w/ family, continue antibiotics, respiratory therapy * continue rocephin * continue Iv steroid as per pulmonary * pulmonary recommendation appreciated * will monitor one more night in imcu * discussed with family bedside. Review of Systems - Review of Systems ENT: negative: Ear Pain, Ear Discharge, Nose Pain, Nose Discharge, Nose Congestion, Mouth Pain, Mouth Swelling, Throat Pain, Throat Swelling, Other Respiratory: Cough, Shortness of Breath. negative: Dry, Hemoptysis, SOB with Excertion, Pleuritic Pain, Sputum, Wheezing Cardiovascular: negative: chest pain, palpitations, orthopnea, paroxysmal nocturnal dyspnea, edema, light headedness, other Gastrointestinal: negative: Nausea, Vomiting, Abdominal Pain, Diarrhea, Constipation, Melena, Hematochezia, Other Genitourinary: negative: Dysuria, Frequency, Incontinence, Hematuria, Retention , Other Musculoskeletal: negative: Neck Pain, Shoulder Pain, Arm Pain, Back Pain, Hand Pain, Leg Pain, Foot Pain, Other Skin: negative: Rash, Lesions, Ant, Bruising, Other - Medications/Allergies Allergies/Adverse Reactions: Allergies Allergy/AdvReac Type Severity Reaction Status Date / Time No Known Allergies Allergy Verified 08/18/18 14:29 Medications: Current Medications Acetaminophen (Tylenol) 650 mg PO Q4H PRN PRN Reason: Headache/Fever/Mild Pain (1-3) Last Admin: 08/21/18 18:49 Dose: 650 mg Hydrocodone Bitart/Acetaminophen ([place] 5/325) 1 tab PO Q4H PRN PRN Reason: Moderate Pain (4-6) Last Admin: 08/22/18 05:27 Dose: 1 tab Albuterol/Ipratropium (Duoneb) 3 ml NEB [id number] JOVANNA Last Admin: 08/22/18 08:06 Dose: 3 ml Albuterol/Ipratropium (Duoneb) 3 ml NEB [id number] PRN PRN Reason: SOB &/or Wheezing Artificial Tears (Tears Naturale) 2 drop EA EYE PRN PRN PRN Reason: Dry Eyes Bisacodyl (Dulcolax) 10 mg PO DAILYPRN PRN PRN Reason: Constipation Bisacodyl (Dulcolax) 10 mg [place] DAILYPRN PRN PRN Reason: Constipation Calcium Carbonate (Tums) 1,000 mg PO Q4H PRN PRN Reason: Heartburn or Indigestion Famotidine (Pepcid) 20 mg PO BID [facility] Last Admin: 08/22/18 10:21 Dose: 20 mg Fluticasone Propionate (Flonase Nasal [place]) 0 gm NASAL DAILY [facility] Last Admin: 08/22/18 10:25 Dose: 1 spr Guaifenesin (Mucinex) 600 mg PO Q12HR [facility] Last Admin: 08/22/18 10:25 Dose: 600 mg Guaifenesin (Robitussin Sf) 200 mg PO Q4H PRN PRN Reason: Cough Last Admin: 08/21/18 09:01 Dose: 200 mg Hydralazine HCl (Apresoline) 10 mg SLOW IVP Q4H PRN PRN Reason: SBP > 180 and HR < 70 Ceftriaxone Sodium 2 gm/ (Sodium Chloride) 100 mls @ 200 mls/hr IVPB 1100 [facility] Last Admin: 08/22/18 11:03 Dose: 100 mls Ascorbic Acid 1,500 mg/ Sodium (Chloride) 53 mls @ 100 mls/hr IVPB Q6HR [facility] Last Admin: 08/22/18 11:39 Dose: 53 mls Thiamine HCl 200 mg/ Sodium (Chloride) 52 mls @ 100 mls/hr IVPB Q12HR [facility] Last Admin: 08/22/18 10:24 Dose: 52 mls Loperamide HCl (Imodium) 2 mg PO PRN PRN PRN Reason: Diarrhea/Loose Stools Loratadine (Claritin) 10 mg PO DAILYPRN PRN PRN Reason: Sinus Symptoms Methylprednisolone Sodium Succinate (Solu-Medrol) 40 mg IVP Q6HR [facility] Last Admin: 08/22/18 11:40 Dose: 40 mg Mineral Oil/White Petrolatum (Eucerin Cream) 0 gm TOP BIDPRN PRN PRN Reason: Dry Skin Oxymetazoline HCl (Oxymetazoline Hcl) 1 sprays NASAL BID [facility] Last Admin: 08/22/18 10:25 Dose: 1 spr Senna/Docusate Sodium (Senokot S) 2 tab PO BID PRN PRN Reason: Constipation Sodium Chloride (Flush - Normal Saline) 10 ml IVF PRN PRN PRN Reason: Saline Flush Last Admin: 08/18/18 22:24 Dose: 10 ml Sodium Chloride ([place] Nasal [place] 0.65%) 0 ml EA NARE QIDPRN PRN PRN Reason: Nasal Congestion Throat Lozenges (Cepastat Lozenges) 1 chantal PO Q2H PRN PRN Reason: Sore Throat Zolpidem Tartrate (Ambien) 5 mg PO HSPRN PRN PRN Reason: Insomnia
[2018-08-23 04:31] LABS: Anion Gap 12 mmol/L (10-20); BUN (Urea Nitrogen) 21 mg/dL (8.9-20.6); Calc. Creatinine Clearance 162 mL/min (70-130); Calcium 8.7 mg/dL (7.8-10.44); Carbon Dioxide 25 mmol/L (22-29); Chloride 106 mmol/L (98-107); Estimated GFR-MDRD 79; Glucose 167 mg/dL (70-105); Sodium 139 mmol/L (136-145)
[2018-08-23 04:40] LABS: Band 18 % (5-11); Hemoglobin 12.6 g/dL (14.0-18.0); Lymphocytes 7 % (21-51); MDiff Complete? YES; Mean Corpuscular Hemoglobin 29.7 pg (27.0-31.0); Mean Corpuscular Volume 89.9 fL (78.0-98.0); Mean Platelet Volume 8.4 fL (7.4-10.4); Metamyelocyte 3 % (0-0); Monocytes 4 % (0-10); Neutrophil 68 % (42-75); Platelet Count 252 thou/uL (130-400); Platelet Morphology Comment Appears Adequate; RBC Distribution Width 12.3 % (11.5-14.5); Red Blood Cell (RBC) Count 4.24 mill/uL (4.70-6.10); White Blood Cell (WBC) Count 18.4 thou/uL (4.8-10.8)
[2018-08-23] MEDS: methylPREDNISolone Sod Succ 40 MG VIAL IVP SCH ×4 (05:03→20:10)
--- NOTE | 2018-08-23 08:05 | RAD ---
SINGLE VIEW OF THE CHEST: Comparison: 08-22-18 History: Ventilated patient with respiratory failure. FINDINGS: Single view of the chest shows a cardiomediastinal silhouette which is upper limits of normal in size . Airspace opacity is again seen projecting over the right lower lobe consistent with a right lower l obe infiltrate. This may have slightly improved compared to the prior exam. IMPRESSION: Improving right lower lobe pneumonia. POS: [facility]
--- NOTE | 2018-08-23 08:25 | PRG ---
DATE OF SERVICE: 08/23/2018 SUBJECTIVE: He is still having severe hypoxemia when moving around, but better at rest. He is starting to sleep a little more. OBJECTIVE: VITAL SIGNS: Temperature 98.2, pulse 79, respirations 17, O2 saturation 94% on 5 L. HEENT: Unremarkable. NECK: No JVD. LUNGS: He has inspiratory crackles bilaterally at the bases. CARDIAC: S1, S2. Regular. ABDOMEN: Soft. EXTREMITIES: No edema. LABORATORY DATA: Sodium 139, potassium 4, BUN 21, creatinine 1.0, glucose 167. White blood cell count 18.4, hematocrit 38.1, and platelet count 252 with 68% neutrophils, 18% bands. Chest x-ray continues to show predominantly right-sided infiltrate. ASSESSMENT: 1. Pneumococcal pneumonia. 2. Acute hypoxic respiratory failure. PLAN: He can move out to the telemetry unit. He needs to start enoxaparin for DVT prophylaxis. I will reduce his steroid dose. Continue the vitamin C, thiamine Rocephin. Job ID: [id number]
[2018-08-23] MEDS: Famotidine 20 MG TAB PO SCH ×2 (09:14→20:09)
[2018-08-23] MEDS: Oxymetazoline HCl 0.05% ( 15 ML ) NASAL SCH ×2 (09:15→20:14)
[2018-08-23] MEDS: guaiFENesin ER 600 MG TAB PO SCH ×2 (09:15→20:09)
--- NOTE | 2018-08-23 09:39 | PDOC.PN ---
- Subjective Encounter Start Date: 08/23/18 Encounter Start Time: 08:20 pt has cough, no fever, he did not require bipap, overall he is doing well Patient seen and examined. No new complaints. No overnight events - Objective Resuscitation Status - Order Detail: 08/18/18 12:29 Resuscitation Status Routine Resuscitation Status: FULL: Full Resuscitation MAR Reviewed: Yes Vital Signs & Weight: Vital Signs (12 hours) Temp Pulse Resp Pulse Ox 08/23/18 07:55 79 17 94 L 08/23/18 07:31 98.2 F 08/23/18 05:10 98.3 F 08/23/18 00:00 98.1 F 08/22/18 22:42 82 20 95 08/22/18 22:39 98.3 F Weight Admit Weight 270 lb 9.6 oz Weight 270 lb 9.6 oz Most Recent Monitor Data Heart Rate from ECG 79 NIBP 151/84 NIBP BP-Mean 106 Respiration from ECG 27 SpO2 84 I&O: 08/22/18 08/23/18 08/24/18 06:59 06:59 06:59 Intake Total 610 1980 Output Total 800 1600 Balance -190 380 Result Diagrams: 08/23/18 04:06 08/23/18 04:06 Radiology Reviewed by me: Yes (chest xray reviwed) EKG Reviewed by me: Yes (nsr) Phys Exam - Physical Examination Constitutional: NAD HEENT: PERRLA, moist MMs, sclera anicteric Neck: no JVD, supple Respiratory: no wheezing, no rhonchi right side rales+ Cardiovascular: RRR, no significant murmur, no rub Gastrointestinal: soft, non-tender, no distention, positive bowel sounds Musculoskeletal: no edema, pulses present Neurological: non-focal, normal sensation, moves all 4 limbs Lymphatic: no nodes Psychiatric: normal affect, A&O x 3 Skin: no rash, normal turgor Dx/Plan (1) Acute respiratory failure with hypoxemia Code(s): J96.01 - ACUTE RESPIRATORY FAILURE WITH HYPOXIA Status: Acute (2) Acute kidney failure Status: Resolved (3) Bacteremia due to Streptococcus pneumoniae Code(s): R78.81 - BACTEREMIA Status: Acute (4) Infection due to human metapneumovirus (hMPV) Code(s): B97.81 - HUMAN METAPNEUMOVIRUS THE CAUSE OF DISEASES CLASSD ELSWHR Status: Acute (5) Lactic acidosis Code(s): E87.2 - ACIDOSIS Status: Resolved (6) Sepsis with acute organ dysfunction Code(s): A41.9 - SEPSIS, UNSPECIFIED ORGANISM; R65.20 - SEVERE SEPSIS WITHOUT SEPTIC SHOCK Status: Acute (7) Streptococcal pneumonia Code(s): J15.4 - PNEUMONIA DUE TO OTHER STREPTOCOCCI Status: Acute (8) Obesity (BMI 30-39.9) Code(s): E66.9 - OBESITY, UNSPECIFIED Status: Chronic (9) Epistaxis Code(s): R04.0 - EPISTAXIS Status: Acute - Plan cont current plan of care, plan discussed w/ family, continue antibiotics, respiratory therapy * today pulmonary has reduced solumedrol * continue rocephin * stable for transfer to floor * he will be discharged when his oxygen level improves * medication reviewed as below * symptomatic treatment * discussed with . Review of Systems - Review of Systems Eyes: negative: Pain, Vision Change, Conjunctivae Inflammation, Eyelid Inflammation, Redness, Other ENT: negative: Ear Pain, Ear Discharge, Nose Pain, Nose Discharge, Nose Congestion, Mouth Pain, Mouth Swelling, Throat Pain, Throat Swelling, Other Respiratory: Cough, Shortness of Breath, SOB with Excertion. negative: Dry, Hemoptysis, Pleuritic Pain, Sputum, Wheezing Cardiovascular: negative: chest pain, palpitations, orthopnea, paroxysmal nocturnal dyspnea, edema, light headedness, other Gastrointestinal: negative: Nausea, Vomiting, Abdominal Pain, Diarrhea, Constipation, Melena, Hematochezia, Other Genitourinary: negative: Dysuria, Frequency, Incontinence, Hematuria, Retention , Other Musculoskeletal: negative: Neck Pain, Shoulder Pain, Arm Pain, Back Pain, Hand Pain, Leg Pain, Foot Pain, Other - Medications/Allergies Allergies/Adverse Reactions: Allergies Allergy/AdvReac Type Severity Reaction Status Date / Time No Known Allergies Allergy Verified 08/18/18 14:29 Medications: Current Medications Acetaminophen (Tylenol) 650 mg PO Q4H PRN PRN Reason: Headache/Fever/Mild Pain (1-3) Last Admin: 08/21/18 18:49 Dose: 650 mg Hydrocodone Bitart/Acetaminophen ([place] 5/325) 1 tab PO Q4H PRN PRN Reason: Moderate Pain (4-6) Last Admin: 08/22/18 21:58 Dose: 1 tab Albuterol/Ipratropium (Duoneb) 3 ml NEB [id number] REPLACED BY [facility] Last Admin: 08/23/18 07:55 Dose: 3 ml Albuterol/Ipratropium (Duoneb) 3 ml NEB [id number] PRN PRN Reason: SOB &/or Wheezing Artificial Tears (Tears Naturale) 2 drop EA EYE PRN PRN PRN Reason: Dry Eyes Bisacodyl (Dulcolax) 10 mg PO DAILYPRN PRN PRN Reason: Constipation Bisacodyl (Dulcolax) 10 mg [place] DAILYPRN PRN PRN Reason: Constipation Calcium Carbonate (Tums) 1,000 mg PO Q4H PRN PRN Reason: Heartburn or Indigestion Famotidine (Pepcid) 20 mg PO BID REPLACED BY [facility] Last Admin: 08/23/18 09:14 Dose: 20 mg Fluticasone Propionate (Flonase Nasal [place]) 0 gm NASAL DAILY REPLACED BY [facility] Last Admin: 08/22/18 10:25 Dose: 1 spr Guaifenesin (Mucinex) 600 mg PO Q12HR REPLACED BY [facility] Last Admin: 08/23/18 09:15 Dose: 600 mg Guaifenesin (Robitussin Sf) 200 mg PO Q4H PRN PRN Reason: Cough Last Admin: 08/21/18 09:01 Dose: 200 mg Hydralazine HCl (Apresoline) 10 mg SLOW IVP Q4H PRN PRN Reason: SBP > 180 and HR < 70 Ceftriaxone Sodium 2 gm/ (Sodium Chloride) 100 mls @ 200 mls/hr IVPB 1100 REPLACED BY [facility] Last Admin: 08/22/18 11:03 Dose: 100 mls Ascorbic Acid 1,500 mg/ Sodium (Chloride) 53 mls @ 100 mls/hr IVPB Q6HR REPLACED BY [facility] Last Admin: 08/23/18 05:03 Dose: 53 mls Thiamine HCl 200 mg/ Sodium (Chloride) 52 mls @ 100 mls/hr IVPB Q12HR REPLACED BY [facility] Last Admin: 08/23/18 09:16 Dose: 52 mls Loperamide HCl (Imodium) 2 mg PO PRN PRN PRN Reason: Diarrhea/Loose Stools Loratadine (Claritin) 10 mg PO DAILYPRN PRN PRN Reason: Sinus Symptoms Methylprednisolone Sodium Succinate (Solu-Medrol) 20 mg IVP Q6H REPLACED BY [facility] Last Admin: 08/23/18 09:15 Dose: 20 mg Mineral Oil/White Petrolatum (Eucerin Cream) 0 gm TOP BIDPRN PRN PRN Reason: Dry Skin Oxymetazoline HCl (Oxymetazoline Hcl) 1 sprays NASAL BID JOVANNA Last Admin: 08/23/18 09:15 Dose: 1 spr Senna/Docusate Sodium (Senokot S) 2 tab PO BID PRN PRN Reason: Constipation Sodium Chloride (Flush - Normal Saline) 10 ml IVF PRN PRN PRN Reason: Saline Flush Last Admin: 08/18/18 22:24 Dose: 10 ml Sodium Chloride ([place] Nasal [place] 0.65%) 0 ml EA NARE QIDPRN PRN PRN Reason: Nasal Congestion Throat Lozenges (Cepastat Lozenges) 1 chantal PO Q2H PRN PRN Reason: Sore Throat Zolpidem Tartrate (Ambien) 5 mg PO HSPRN PRN PRN Reason: Insomnia
[2018-08-23] MEDS: Fluticasone Propionate Nasal Spray 16 gm Bottle NASAL SCH (10:06)
[2018-08-23] MEDS: cefTRIAXone\\ROCEPHIN 2 GM in Sodium Chloride 0.9% 100 ML IVPB SCH (11:14)
[2018-08-23] MEDS ORDERED: Enoxaparin Sodium 40 MG/0.4 ML SYRINGE SC SCH (22:45)
[2018-08-23] MEDS: HYDROcodone/Acetaminophen 5/325 mg Tablet PO PRN (23:40)
[2018-08-24] MEDS: methylPREDNISolone Sod Succ 40 MG VIAL IVP SCH ×4 (02:57→21:05)
[2018-08-24 07:11] LABS: Mean Corpuscular HGB CONC 32.4 g/dL (32.0-36.0); Mean Corpuscular Hemoglobin 29.2 pg (27.0-31.0); Mean Corpuscular Volume 90.1 fL (78.0-98.0); Mean Platelet Volume 8.1 fL (7.4-10.4); Platelet Count 303 thou/uL (130-400); RBC Distribution Width 12.5 % (11.5-14.5); Red Blood Cell (RBC) Count 4.46 mill/uL (4.70-6.10); White Blood Cell (WBC) Count 17.7 thou/uL (4.8-10.8)
[2018-08-24 07:17] LABS: Anion Gap 14 mmol/L (10-20); BUN (Urea Nitrogen) 18 mg/dL (8.9-20.6); Calc. Creatinine Clearance 172 mL/min (70-130); Calcium 8.5 mg/dL (7.8-10.44); Carbon Dioxide 25 mmol/L (22-29); Chloride 104 mmol/L (98-107); Estimated GFR-MDRD 84; Glucose 105 mg/dL (70-105); Potassium 3.9 mmol/L (3.5-5.1); Sodium 139 mmol/L (136-145)
[2018-08-24] MEDS: Famotidine 20 MG TAB PO SCH ×2 (08:36→21:04)
[2018-08-24] MEDS: Enoxaparin Sodium 40 MG/0.4 ML SYRINGE SC SCH (08:36)
[2018-08-24] MEDS: guaiFENesin ER 600 MG TAB PO SCH ×2 (08:36→21:04)
[2018-08-24] MEDS: Fluticasone Propionate Nasal Spray 16 gm Bottle NASAL SCH (08:37)
[2018-08-24] MEDS: Oxymetazoline HCl 0.05% ( 15 ML ) NASAL SCH ×2 (08:38→21:06)
--- NOTE | 2018-08-24 09:05 | PRG ---
DATE OF SERVICE: 08/24/2018 SUBJECTIVE: He is starting to feel better. He is up out of bed this morning. OBJECTIVE: VITAL SIGNS: On exam, temperature 97.8, pulse 75, respirations 16, O2 saturation was 93% on 4 L at rest, blood pressure 136/79. HEENT: Unremarkable. NECK: No JVD. CHEST: Clear anteriorly, but he has crackles in the bases posteriorly bilaterally, right greater than left. CARDIAC: S1 and S2 regular. ABDOMEN: Soft. EXTREMITIES: No edema. LABORATORY DATA: White blood cell count 17.7, hematocrit 40.2, platelet count 303. Sodium 139, potassium 3.9, chloride 104, CO2 of 25, BUN 18, creatinine 0.9, glucose 105. ASSESSMENT: Pneumococcal pneumonia. PLAN: Continue antibiotics. At this point, we are basically awaiting for his oxygenation to improve. I anticipate him staying in the hospital over the weekend. Job ID: [id number]
[2018-08-24 09:18] LABS: Band 15 % (5-11); Lymphocytes 11 % (21-51); MDiff Complete? YES; Metamyelocyte 3 % (0-0); Monocytes 7 % (0-10); Neutrophil 63 % (42-75); RBC Morphology Normal; Reactive Lymphocytes 1 % (0-10)
[2018-08-24] MEDS: cefTRIAXone\\ROCEPHIN 2 GM in Sodium Chloride 0.9% 100 ML IVPB SCH (11:36)
--- NOTE | 2018-08-24 12:23 | PDOC.PN ---
- Subjective Encounter Start Date: 08/24/18 Encounter Start Time: 08:30 Patient seen and examined. No new complaints. No overnight events - Objective Resuscitation Status - Order Detail: 08/18/18 12:29 Resuscitation Status Routine Resuscitation Status: FULL: Full Resuscitation MAR Reviewed: Yes Vital Signs & Weight: Vital Signs (12 hours) Temp Pulse Resp BP Pulse Ox 08/24/18 11:48 98.1 F 78 18 134/82 96 08/24/18 11:30 82 L 08/24/18 08:35 98.3 F 89 18 125/67 96 08/24/18 07:22 75 16 91 L 08/24/18 04:15 97.8 F 69 20 136/79 94 L Weight Admit Weight 270 lb 9.6 oz Weight 270 lb 9.6 oz Most Recent Monitor Data Heart Rate from ECG 84 NIBP 149/98 NIBP BP-Mean 115 Respiration from ECG 30 SpO2 91 I&O: 08/23/18 08/24/18 08/25/18 06:59 06:59 06:59 Intake Total 1980 1456 Output Total 1600 Balance 380 1456 Result Diagrams: 08/24/18 06:42 08/24/18 06:42 EKG Reviewed by me: Yes (nsr) Phys Exam - Physical Examination Constitutional: NAD HEENT: PERRLA, moist MMs, sclera anicteric Neck: no JVD, supple Respiratory: no wheezing, no rhonchi right side rales Cardiovascular: RRR, no significant murmur, no rub Gastrointestinal: soft, non-tender, no distention, positive bowel sounds Musculoskeletal: no edema, pulses present Neurological: non-focal, normal sensation, moves all 4 limbs Lymphatic: no nodes Psychiatric: normal affect, A&O x 3 Skin: no rash, normal turgor Dx/Plan (1) Acute respiratory failure with hypoxemia Code(s): J96.01 - ACUTE RESPIRATORY FAILURE WITH HYPOXIA Status: Acute (2) Acute kidney failure Status: Resolved (3) Bacteremia due to Streptococcus pneumoniae Code(s): R78.81 - BACTEREMIA Status: Acute (4) Infection due to human metapneumovirus (hMPV) Code(s): B97.81 - HUMAN METAPNEUMOVIRUS THE CAUSE OF DISEASES CLASSD ELSWHR Status: Acute (5) Lactic acidosis Code(s): E87.2 - ACIDOSIS Status: Resolved (6) Sepsis with acute organ dysfunction Code(s): A41.9 - SEPSIS, UNSPECIFIED ORGANISM; R65.20 - SEVERE SEPSIS WITHOUT SEPTIC SHOCK Status: Acute (7) Streptococcal pneumonia Code(s): J15.4 - PNEUMONIA DUE TO OTHER STREPTOCOCCI Status: Acute (8) Obesity (BMI 30-39.9) Code(s): E66.9 - OBESITY, UNSPECIFIED Status: Chronic (9) Epistaxis Code(s): R04.0 - EPISTAXIS Status: Acute - Plan cont current plan of care, plan discussed w/ family, continue antibiotics, respiratory therapy * continue rocephin * continue steroid as per pulmonary * now will wean off oxygen as tolerated * medication reviewed as below * symptomatic treatment. Review of Systems - Review of Systems ENT: negative: Ear Pain, Ear Discharge, Nose Pain, Nose Discharge, Nose Congestion, Mouth Pain, Mouth Swelling, Throat Pain, Throat Swelling, Other Respiratory: Cough, Sputum. negative: Dry, Shortness of Breath, Hemoptysis, SOB with Excertion, Pleuritic Pain, Wheezing Cardiovascular: negative: chest pain, palpitations, orthopnea, paroxysmal nocturnal dyspnea, edema, light headedness, other Gastrointestinal: negative: Nausea, Vomiting, Abdominal Pain, Diarrhea, Constipation, Melena, Hematochezia, Other Genitourinary: negative: Dysuria, Frequency, Incontinence, Hematuria, Retention , Other Musculoskeletal: negative: Neck Pain, Shoulder Pain, Arm Pain, Back Pain, Hand Pain, Leg Pain, Foot Pain, Other Skin: negative: Rash, Lesions, Ant, Bruising, Other - Medications/Allergies Allergies/Adverse Reactions: Allergies Allergy/AdvReac Type Severity Reaction Status Date / Time No Known Allergies Allergy Verified 08/18/18 14:29 Medications: Current Medications Acetaminophen (Tylenol) 650 mg PO Q4H PRN PRN Reason: Headache/Fever/Mild Pain (1-3) Last Admin: 08/21/18 18:49 Dose: 650 mg Hydrocodone Bitart/Acetaminophen ([place] 5/325) 1 tab PO Q4H PRN PRN Reason: Moderate Pain (4-6) Last Admin: 08/23/18 23:40 Dose: 1 tab Albuterol/Ipratropium (Duoneb) 3 ml NEB [id number] JOVANNA Last Admin: 08/24/18 07:22 Dose: 3 ml Albuterol/Ipratropium (Duoneb) 3 ml NEB [id number] PRN PRN Reason: SOB &/or Wheezing Artificial Tears (Tears Naturale) 2 drop EA EYE PRN PRN PRN Reason: Dry Eyes Bisacodyl (Dulcolax) 10 mg PO DAILYPRN PRN PRN Reason: Constipation Bisacodyl (Dulcolax) 10 mg [place] DAILYPRN PRN PRN Reason: Constipation Calcium Carbonate (Tums) 1,000 mg PO Q4H PRN PRN Reason: Heartburn or Indigestion Enoxaparin Sodium (Lovenox) 40 mg SC 0900 [facility] Last Admin: 08/24/18 08:36 Dose: 40 mg Famotidine (Pepcid) 20 mg PO BID [facility] Last Admin: 08/24/18 08:36 Dose: 20 mg Fluticasone Propionate (Flonase Nasal [place]) 0 gm NASAL DAILY [facility] Last Admin: 08/24/18 08:37 Dose: 2 spr Guaifenesin (Mucinex) 600 mg PO Q12HR [facility] Last Admin: 08/24/18 08:36 Dose: 600 mg Guaifenesin (Robitussin Sf) 200 mg PO Q4H PRN PRN Reason: Cough Last Admin: 08/21/18 09:01 Dose: 200 mg Hydralazine HCl (Apresoline) 10 mg SLOW IVP Q4H PRN PRN Reason: SBP > 180 and HR < 70 Ceftriaxone Sodium 2 gm/ (Sodium Chloride) 100 mls @ 200 mls/hr IVPB 1100 [facility] Last Admin: 08/24/18 11:36 Dose: 100 mls Ascorbic Acid 1,500 mg/ Sodium (Chloride) 53 mls @ 100 mls/hr IVPB Q6HR [facility] Stop: 08/25/18 12:32 Last Admin: 08/24/18 06:12 Dose: 53 mls Thiamine HCl 200 mg/ Sodium (Chloride) 52 mls @ 100 mls/hr IVPB Q12HR [facility] Stop: 08/25/18 09:32 Last Admin: 08/24/18 09:31 Dose: 52 mls Loperamide HCl (Imodium) 2 mg PO PRN PRN PRN Reason: Diarrhea/Loose Stools Loratadine (Claritin) 10 mg PO DAILYPRN PRN PRN Reason: Sinus Symptoms Methylprednisolone Sodium Succinate (Solu-Medrol) 20 mg IVP Q6H [facility] Last Admin: 08/24/18 08:38 Dose: 20 mg Mineral Oil/White Petrolatum (Eucerin Cream) 0 gm TOP BIDPRN PRN PRN Reason: Dry Skin Oxymetazoline HCl (Oxymetazoline Hcl) 1 sprays NASAL BID [facility] Last Admin: 08/24/18 08:38 Dose: 1 spr Senna/Docusate Sodium (Senokot S) 2 tab PO BID PRN PRN Reason: Constipation Sodium Chloride (Flush - Normal Saline) 10 ml IVF PRN PRN PRN Reason: Saline Flush Last Admin: 08/24/18 08:37 Dose: 10 ml Sodium Chloride ([place] Nasal [place] 0.65%) 0 ml EA NARE QIDPRN PRN PRN Reason: Nasal Congestion Throat Lozenges (Cepastat Lozenges) 1 chantal PO Q2H PRN PRN Reason: Sore Throat Zolpidem Tartrate (Ambien) 5 mg PO HSPRN PRN PRN Reason: Insomnia
[2018-08-25] MEDS: methylPREDNISolone Sod Succ 40 MG VIAL IVP SCH ×2 (02:49→10:14)
[2018-08-25 06:19] LABS: #Eosinphils 0.1 thou/uL (0.0-0.7); #Lymphocytes 1.4 thou/uL (1.20-3.40); #Monocytes 0.8 thou/uL (0.11-0.59); #Neutrophils 12.4 thou/uL (1.40-6.50); %Eosinophils 0.5 % (0.0-10.0); %Lymphocytes 9.6 % (21.0-51.0); %Monocytes 5.2 % (0.0-10.0); %Neutrophils 84.8 % (42.0-75.0); Mean Corpuscular HGB CONC 31.8 g/dL (32.0-36.0); Mean Corpuscular Hemoglobin 28.9 pg (27.0-31.0); Mean Corpuscular Volume 90.9 fL (78.0-98.0); Mean Platelet Volume 8.1 fL (7.4-10.4); Platelet Count 290 thou/uL (130-400); RBC Distribution Width 12.6 % (11.5-14.5); Red Blood Cell (RBC) Count 4.49 mill/uL (4.70-6.10); White Blood Cell (WBC) Count 14.6 thou/uL (4.8-10.8)
[2018-08-25 06:40] LABS: Anion Gap 12 mmol/L (10-20); BUN (Urea Nitrogen) 17 mg/dL (8.9-20.6); Calc. Creatinine Clearance 158 mL/min (70-130); Calcium 8.6 mg/dL (7.8-10.44); Carbon Dioxide 25 mmol/L (22-29); Chloride 105 mmol/L (98-107); Estimated GFR-MDRD 76; Glucose 127 mg/dL (70-105); Potassium 4.4 mmol/L (3.5-5.1); Sodium 138 mmol/L (136-145)
[2018-08-25] MEDS: Oxymetazoline HCl 0.05% ( 15 ML ) NASAL SCH ×2 (10:10→21:37)
[2018-08-25] MEDS: guaiFENesin ER 600 MG TAB PO SCH ×2 (10:13→21:36)
[2018-08-25] MEDS: Famotidine 20 MG TAB PO SCH ×2 (10:13→21:36)
[2018-08-25] MEDS: Enoxaparin Sodium 40 MG/0.4 ML SYRINGE SC SCH (10:14)
[2018-08-25] MEDS: cefTRIAXone\\ROCEPHIN 2 GM in Sodium Chloride 0.9% 100 ML IVPB SCH (10:15)
[2018-08-25] MEDS: Fluticasone Propionate Nasal Spray 16 gm Bottle NASAL SCH (10:15)
--- NOTE | 2018-08-25 13:33 | PDOC.PN ---
- Subjective Encounter Start Date: 08/25/18 Encounter Start Time: 09:15 Patient seen and examined. No new complaints. No overnight events - Objective Resuscitation Status - Order Detail: 08/18/18 12:29 Resuscitation Status Routine Resuscitation Status: FULL: Full Resuscitation MAR Reviewed: Yes Vital Signs & Weight: Vital Signs (12 hours) Temp Pulse Resp BP BP Pulse Ox 08/25/18 08:45 98 F 92 18 142/73 H 88 L 08/25/18 07:50 92 L 08/25/18 07:47 72 16 08/25/18 04:00 97.9 F 64 18 132/78 92 L Weight Admit Weight 270 lb 9.6 oz Weight 270 lb 9.6 oz Most Recent Monitor Data Heart Rate from ECG 84 NIBP 149/98 NIBP BP-Mean 115 Respiration from ECG 30 SpO2 91 I&O: 08/24/18 08/25/18 08/26/18 06:59 06:59 06:59 Intake Total 1456 1711 Balance 1456 1711 Result Diagrams: 08/25/18 06:05 08/25/18 06:05 EKG Reviewed by me: Yes (nsr) Phys Exam - Physical Examination Constitutional: NAD HEENT: PERRLA, moist MMs, sclera anicteric Neck: no JVD, supple Respiratory: no wheezing, no rhonchi right side rales Cardiovascular: RRR, no significant murmur, no rub Gastrointestinal: soft, non-tender, no distention, positive bowel sounds Musculoskeletal: no edema, pulses present Neurological: non-focal, normal sensation, moves all 4 limbs Lymphatic: no nodes Psychiatric: normal affect, A&O x 3 Skin: no rash, normal turgor Dx/Plan (1) Acute respiratory failure with hypoxemia Code(s): J96.01 - ACUTE RESPIRATORY FAILURE WITH HYPOXIA Status: Acute (2) Acute kidney failure Status: Resolved (3) Bacteremia due to Streptococcus pneumoniae Code(s): R78.81 - BACTEREMIA Status: Acute (4) Infection due to human metapneumovirus (hMPV) Code(s): B97.81 - HUMAN METAPNEUMOVIRUS THE CAUSE OF DISEASES CLASSD ELSWHR Status: Acute (5) Lactic acidosis Code(s): E87.2 - ACIDOSIS Status: Resolved (6) Sepsis with acute organ dysfunction Code(s): A41.9 - SEPSIS, UNSPECIFIED ORGANISM; R65.20 - SEVERE SEPSIS WITHOUT SEPTIC SHOCK Status: Acute (7) Streptococcal pneumonia Code(s): J15.4 - PNEUMONIA DUE TO OTHER STREPTOCOCCI Status: Acute (8) Obesity (BMI 30-39.9) Code(s): E66.9 - OBESITY, UNSPECIFIED Status: Chronic (9) Epistaxis Code(s): R04.0 - EPISTAXIS Status: Acute - Plan cont current plan of care, continue antibiotics, respiratory therapy * medication reviewed as below * symptomatic treatment * continue rocephin * continue solumderol * pt is continue to improve * wean off oxygen. Review of Systems - Review of Systems ENT: Other. negative: Ear Pain, Ear Discharge, Nose Pain, Nose Discharge, Nose Congestion, Mouth Pain (epistaxis), Mouth Swelling, Throat Pain, Throat Swelling Respiratory: Cough, Sputum. negative: Dry, Shortness of Breath, Hemoptysis, SOB with Excertion, Pleuritic Pain, Wheezing Cardiovascular: negative: chest pain, palpitations, orthopnea, paroxysmal nocturnal dyspnea, edema, light headedness, other Gastrointestinal: negative: Nausea, Vomiting, Abdominal Pain, Diarrhea, Constipation, Melena, Hematochezia, Other Genitourinary: negative: Dysuria, Frequency, Incontinence, Hematuria, Retention , Other Musculoskeletal: negative: Neck Pain, Shoulder Pain, Arm Pain, Back Pain, Hand Pain, Leg Pain, Foot Pain, Other - Medications/Allergies Allergies/Adverse Reactions: Allergies Allergy/AdvReac Type Severity Reaction Status Date / Time No Known Allergies Allergy Verified 08/18/18 14:29 Medications: Current Medications Acetaminophen (Tylenol) 650 mg PO Q4H PRN PRN Reason: Headache/Fever/Mild Pain (1-3) Last Admin: 08/21/18 18:49 Dose: 650 mg Hydrocodone Bitart/Acetaminophen ([place] 5/325) 1 tab PO Q4H PRN PRN Reason: Moderate Pain (4-6) Last Admin: 08/23/18 23:40 Dose: 1 tab Albuterol/Ipratropium (Duoneb) 3 ml NEB [id number] JOVANNA Last Admin: 08/25/18 07:47 Dose: 3 ml Albuterol/Ipratropium (Duoneb) 3 ml NEB [id number] PRN PRN Reason: SOB &/or Wheezing Artificial Tears (Tears Naturale) 2 drop EA EYE PRN PRN PRN Reason: Dry Eyes Bisacodyl (Dulcolax) 10 mg PO DAILYPRN PRN PRN Reason: Constipation Bisacodyl (Dulcolax) 10 mg [place] DAILYPRN PRN PRN Reason: Constipation Calcium Carbonate (Tums) 1,000 mg PO Q4H PRN PRN Reason: Heartburn or Indigestion Enoxaparin Sodium (Lovenox) 40 mg SC 0900 [facility] Last Admin: 08/25/18 10:14 Dose: 40 mg Famotidine (Pepcid) 20 mg PO BID [facility] Last Admin: 08/25/18 10:13 Dose: 20 mg Fluticasone Propionate (Flonase Nasal [place]) 0 gm NASAL DAILY [facility] Last Admin: 08/25/18 10:15 Dose: 2 spr Guaifenesin (Mucinex) 600 mg PO Q12HR [facility] Last Admin: 08/25/18 10:13 Dose: 600 mg Guaifenesin (Robitussin Sf) 200 mg PO Q4H PRN PRN Reason: Cough Last Admin: 08/21/18 09:01 Dose: 200 mg Hydralazine HCl (Apresoline) 10 mg SLOW IVP Q4H PRN PRN Reason: SBP > 180 and HR < 70 Ceftriaxone Sodium 2 gm/ (Sodium Chloride) 100 mls @ 200 mls/hr IVPB 1100 [facility] Last Admin: 08/25/18 10:15 Dose: 100 mls Loperamide HCl (Imodium) 2 mg PO PRN PRN PRN Reason: Diarrhea/Loose Stools Loratadine (Claritin) 10 mg PO DAILYPRN PRN PRN Reason: Sinus Symptoms Methylprednisolone Sodium Succinate (Solu-Medrol) 20 mg IVP Q6H [facility] Last Admin: 08/25/18 10:14 Dose: 20 mg Mineral Oil/White Petrolatum (Eucerin Cream) 0 gm TOP BIDPRN PRN PRN Reason: Dry Skin Oxymetazoline HCl (Oxymetazoline Hcl) 1 sprays NASAL BID [facility] Last Admin: 08/25/18 10:10 Dose: Not Given Senna/Docusate Sodium (Senokot S) 2 tab PO BID PRN PRN Reason: Constipation Sodium Chloride (Flush - Normal Saline) 10 ml IVF PRN PRN PRN Reason: Saline Flush Last Admin: 08/24/18 08:37 Dose: 10 ml Sodium Chloride ([place] Nasal [place] 0.65%) 0 ml EA NARE QIDPRN PRN PRN Reason: Nasal Congestion Throat Lozenges (Cepastat Lozenges) 1 hcantal PO Q2H PRN PRN Reason: Sore Throat Zolpidem Tartrate (Ambien) 5 mg PO HSPRN PRN PRN Reason: Insomnia
--- NOTE | 2018-08-25 17:09 | PRG ---
DATE OF SERVICE: 08/25/2018 SUBJECTIVE: Nima Cuevas is doing well. He had a nosebleed this morning. He said it started when he has had this admission. If this continues, I have recommended Ear, Nose, and Throat consultation. OBJECTIVE: VITAL SIGNS: Afebrile, heart rate 92, respiratory rate 18, oximetry is within the mid 90s on room air. When I was in the room with him, the oximetry probe was intermittently reading correctly, so my feeling that a lot of his oximetry abnormalities are related to the probe malfunction, blood pressure 142/73. LUNGS: Clear. HEART: Regular rhythm. ABDOMEN: Soft. DIAGNOSTIC IMPRESSION: Cultures remarkable for 2/2 for pneumococcus on the night. Chest x-ray done 2 days ago showed improvement of his right lower lobe infiltrate surprisingly this quickly. White count 14.6, hemoglobin 13, platelets 290. Electrolytes are normal. IMPRESSION: Pneumococcal pneumonia with bacteremia, clinically improving. 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 His IV antimicrobial therapy can be discontinued. His IV steroids to be switched to p.o. steroids given his stability, in my opinion, finishing his vitamin-C/sepsis protocol. The sensitivities of the pneumococcus were reviewed, and this is a pansensitive organism. He has no allergies, so he will be started on Augmentin p.o. and prednisone p.o. Job ID: [id number]
[2018-08-25] MEDS: Amoxicillin/Potassium Clav 875 MG TAB PO SCH (21:35)
[2018-08-26 05:20] LABS: #Eosinphils 0.1 thou/uL (0.0-0.7); #Lymphocytes 3.2 thou/uL (1.20-3.40); #Monocytes 0.7 thou/uL (0.11-0.59); #Neutrophils 10.9 thou/uL (1.40-6.50); %Basophils 0.2 % (0.0-1.0); %Eosinophils 0.9 % (0.0-10.0); %Lymphocytes 21.4 % (21.0-51.0); %Monocytes 4.8 % (0.0-10.0); %Neutrophils 72.6 % (42.0-75.0); Mean Corpuscular HGB CONC 32.5 g/dL (32.0-36.0); Mean Corpuscular Hemoglobin 29.4 pg (27.0-31.0); Mean Corpuscular Volume 90.7 fL (78.0-98.0); Platelet Count 280 thou/uL (130-400); RBC Distribution Width 12.7 % (11.5-14.5); Red Blood Cell (RBC) Count 4.42 mill/uL (4.70-6.10); White Blood Cell (WBC) Count 15.1 thou/uL (4.8-10.8)
[2018-08-26 05:34] LABS: Anion Gap 14 mmol/L (10-20); BUN (Urea Nitrogen) 15 mg/dL (8.9-20.6); Calc. Creatinine Clearance 201 mL/min (70-130); Calcium 8.3 mg/dL (7.8-10.44); Carbon Dioxide 24 mmol/L (22-29); Chloride 105 mmol/L (98-107); Estimated GFR-MDRD Greater than 90; Glucose 112 mg/dL (70-105); Potassium 3.5 mmol/L (3.5-5.1); Sodium 139 mmol/L (136-145)
[2018-08-26] MEDS: methylPREDNISolone Sod Succ 40 MG VIAL IVP SCH (07:57)
[2018-08-26] MEDS ORDERED: predniSONE 20 MG TAB PO SCH (08:00)
[2018-08-26 09:07] VITALS: BP 128/81; TEMP 98.5
[2018-08-26] MEDS: Famotidine 20 MG TAB PO SCH (09:08)
[2018-08-26] MEDS: Fluticasone Propionate Nasal Spray 16 gm Bottle NASAL SCH (09:08)
[2018-08-26] MEDS: guaiFENesin ER 600 MG TAB PO SCH (09:09)
[2018-08-26] MEDS: Enoxaparin Sodium 40 MG/0.4 ML SYRINGE SC SCH (09:09)
[2018-08-26] MEDS: Oxymetazoline HCl 0.05% ( 15 ML ) NASAL SCH (09:09)
[2018-08-26] MEDS: Amoxicillin/Potassium Clav 875 MG TAB PO SCH (09:09)
--- NOTE | 2018-08-26 12:20 | DIS ---
DATE OF ADMISSION: 08/18/2018 DATE OF DISCHARGE: 08/26/2018 PRIMARY CARE PHYSICIAN: Dr. Elinor Patel. DISCHARGE DISPOSITION: Home. PRIMARY DISCHARGE DIAGNOSES: 1. Acute respiratory failure with hypoxia. 2. Bacteremia due to Streptococcus pneumoniae. 3. Infection due to human metapneumovirus. 4. Streptococcal community-acquired pneumonia. 5. Sepsis with acute organ dysfunction. 6. Lactic acidosis, resolved. 7. Acute kidney failure, improved. SECONDARY DISCHARGE DIAGNOSIS: Obesity. PRIMARY PROCEDURE/OPERATION: None. RADIOLOGICAL INVESTIGATION: Chest x-ray showed multifocal pneumonia. Echocardiography showed normal EF. SIGNIFICANT LABORATORY DATA: WBC 15.1, hemoglobin 13.0, and platelets 280. Sodium 139, potassium 3.5, BUN 15, creatinine 0.84, and calcium 8.3. Urinalysis unremarkable. Streptococcal pneumoniae urine antigen positive and Legionella urine antigen negative. Blood culture positive for Streptococcus pneumoniae. Repeat blood culture is negative. Respiratory virus panel was positive for human metapneumovirus. Influenza screen negative. DISCHARGE MEDICATIONS: 1. Ventolin inhaler 2 puffs q.6 hourly p.r.n. 2. Augmentin 875 mg p.o. twice daily for 7 more days. 3. Mucinex 600 mg twice daily for 7 days. 4. Prednisone 40 mg p.o. daily for 5 days. CONTRAINDICATION: None. CODE STATUS: Full code. INPATIENT SPORTS SPECIALIST: Dr. Mckeon was following while in hospital. TEST RESULT PENDING ON DISCHARGE: None. ALLERGIES: NO KNOWN DRUG ALLERGIES. DISCHARGE PLAN: Posthospital, the patient is instructed to make appointment with primary care physician in 1 week. The patient is also instructed to follow up with Dr. Mckeon and repeat outpatient chest x-ray. HOSPITAL COURSE: A 42-year-old male who was having upper respiratory infection for about a week or two. He was treating himself with [id number] basis without any improvement. The patient also required urgent care visit. At that time, x-ray was unremarkable. The patient's symptoms continually got to worsen that is why the patient came back to emergency room. At that time, the patient was found with multifocal pneumonia. The patient was meeting sepsis with acute organ dysfunction criteria with hypoxic respiratory failure, acute kidney failure, and lactic acidosis. The patient was admitted to medical floor, but over there, the patient had deterioration. He was tachypneic, hypoxic, and that is why the patient required IMCU transfer. At that point, we consulted Pulmonary group. The patient was given Rocephin and levofloxacin while in hospital. We also gave him Solu-Medrol while in hospital. Echocardiography was done, which was normal. Subsequently, repeat chest x-ray showed stable pneumonia. The patient was [place] [facility] [place], where we continued IV antibiotic therapy and initially he was requiring oxygen and that is why he remained in hospital for a little bit longer period of time, but by the time of discharge, his oxygen saturation is normal on room air and he does not need any oxygen therapy upon discharge. Based on culture result, we changed antibiotic therapy to Augmentin upon discharge. The patient will finish 5 days of a steroid and Mucinex therapy. Ventolin inhaler was also prescribed. The patient is seen and examined at bedside today. REVIEW OF SYSTEMS: All review of systems reviewed with him and negative. PHYSICAL EXAMINATION: VITAL SIGNS: Currently, temperature 98.5, pulse 85, respiratory rate 16, saturation 92% on room air, and blood pressure 130/69. Weight 270 pounds. GENERAL: The patient is currently alert, awake, in no obvious acute distress. HEENT: Head; normocephalic, atraumatic. Eyes; pupils round, reactive to light. Extraocular muscle intact. ENT: Oropharynx within normal limits. Moist mucous membranes. No oral lesion. No pharyngeal erythema. No exudate. NECK: Supple. No JVD. No thyromegaly. No carotid bruit. LUNGS: Scattered rales on the right side. NEUROLOGIC: Nonfocal examination. Overall, the patient is medically stable for discharge. All new medication prescription sent to his pharmacy. Paperwork for return to work is done. Job ID: [id number]
== END 2018-08-26 11:55 | disposition home or self-care (01) | DRG 871 ==
LOC: ERS 10:17 → 2NO 14:22 → T4-A 08-20 11:39 → IMCU/EMU 08-21 12:51 → 2NO 08-23 21:52
PROVIDERS: ADMIT Internal Medicine; ATTEND Internal Medicine
DX: A40.3 Sepsis due to Streptococcus pneumoniae (principal); J96.01 Acute respiratory failure with hypoxia; J13 Pneumonia due to Streptococcus pneumoniae; R65.20 Severe sepsis without septic shock; E87.2 Acidosis; N17.9 Acute kidney failure, unspecified; Z68.41 Body mass index [BMI] 40.0-44.9, adult; E66.01 Morbid (severe) obesity due to excess calories; R04.0 Epistaxis; B97.81 Human metapneumovirus as the cause of diseases classified elsewhere; I10 Essential (primary) hypertension; M54.5 Low back pain; G89.29 Other chronic pain
CPT/HCPCS: 36415; 71045; 71046; 80048; 80053; 81003; 81015; 82274; 82805; 83605; 85025; 85060; 87040; 87077; 87149; 87186; 87633; 87804; 87899; 93005; 93306; 94640; 94760; 96361; 96365; 96367; J0456; J0696; J1650; J1956; J2920; J3411; J7050; J7620

== ENCOUNTER 2018-09-03 15:51 | Outpatient (CLI) | payer BC ==
--- NOTE | 2018-09-03 17:41 | RAD ---
PA AND LATERAL CHEST X-RAY: 09/03/2018 HISTORY: Pleurodynia. Pleuritic chest pain. COMPARISON: 08/23/2018 FINDINGS: The cardiac silhouette appears mildly enlarged. The consolidation and air space opacity within the r ight mid lung zone and right lung base has improved, with persistent linear densities, which may be r elated to improvement but persistent infectious process. There are increased interstitial and patchy densities now present at the left lung base, which could be related to developing pneumonia at the l eft lung base, in the region of the lingula. The pulmonary vasculature is within normal limits. The osseous structures are intact. IMPRESSION: Improving pneumonia, right lung. There interstitial and patchy densities present at the left lung ba se, which may be related to developing pneumonia, now present at the left lung base. Continued follo wup to resolution is recommended. POS: [facility]
== END 2018-09-03 15:52 | disposition home or self-care (01) ==
LOC: RAD 15:51
PROVIDERS: ATTEND Internal Medicine
DX: R07.81 Pleurodynia (principal); J18.9 Pneumonia, unspecified organism; J98.4 Other disorders of lung
CPT/HCPCS: 71046

== ENCOUNTER 2018-09-03 20:37 | Inpatient (IN) | payer BC ==
[~2018-09-03 20:37] MED LIST: ISOVUE-370 76%-LOCM 1 ML ONE
[2018-09-03 21:18] LABS: #Basophils 0.1 thou/uL (0.0-0.2); #Eosinphils 0.1 thou/uL (0.0-0.7); #Lymphocytes 2.7 thou/uL (1.20-3.40); #Monocytes 1.1 thou/uL (0.11-0.59); #Neutrophils 8.5 thou/uL (1.40-6.50); %Basophils 0.6 % (0.0-1.0); %Eosinophils 0.8 % (0.0-10.0); %Lymphocytes 21.8 % (21.0-51.0); %Monocytes 8.9 % (0.0-10.0); %Neutrophils 67.9 % (42.0-75.0); Hemoglobin 13.8 g/dL (14.0-18.0); Mean Corpuscular HGB CONC 32.1 g/dL (32.0-36.0); Mean Corpuscular Hemoglobin 29.2 pg (27.0-31.0); Mean Corpuscular Volume 90.8 fL (78.0-98.0); Mean Platelet Volume 7.8 fL (7.4-10.4); Platelet Count 355 thou/uL (130-400); RBC Distribution Width 13.3 % (11.5-14.5); Red Blood Cell (RBC) Count 4.73 mill/uL (4.70-6.10); White Blood Cell (WBC) Count 12.5 thou/uL (4.8-10.8)
[2018-09-03] MEDS ORDERED: Fentanyl 100 MCG/2 ML VIAL ONE (21:20)
[2018-09-03] MEDS ORDERED: Ketorolac Tromethamine 30 MG/ML VIAL ONE (21:20)
[2018-09-03 21:39] LABS: ALT (SGPT) 75 U/L (8-55); AST (SGOT) 25 U/L (5-34); Albumin 3.9 g/dL (3.5-5.0); Alkaline Phosphatase 113 U/L (40-150); Anion Gap 14 mmol/L (10-20); BUN (Urea Nitrogen) 22 mg/dL (8.9-20.6); Bilirubin, Total 0.4 mg/dL (0.2-1.2); CK (CPK) 49 U/L (30-200); Calc. Creatinine Clearance 0 mL/min (70-130); Calcium 9.5 mg/dL (7.8-10.44); Carbon Dioxide 25 mmol/L (22-29); Chloride 105 mmol/L (98-107); Estimated GFR-MDRD 81; Glucose 140 mg/dL (70-105); Potassium 4.1 mmol/L (3.5-5.1); Protein, Total 6.9 g/dL (6.0-8.3); Sodium 140 mmol/L (136-145)
[2018-09-03] MEDS ORDERED: Dexamethasone 4 mg/ml Vial ONE (22:21)
--- NOTE | 2018-09-03 22:45 | CT ---
CTA CHEST WITH CONTRAST: Technique: Multiple contiguous axial images were obtained through the chest following pulmonary angio protocol. Multiplanar reconstruction and 3D post processing performed. Indications: Shortness of breath. Assess for pulmonary embolus. FINDINGS: Pulmonary arteries show suboptimal opacification. There is no evidence of proximal pulmonary embolus. There are chronic lung parenchymal changes. There are several bullae in the right lung. There is hazy alveolar infiltrate in the right upper lobe, right middle lobe, and there is streaky infiltrate in b oth posterior lower lobes. Mediastinum is unremarkable. IMPRESSION: 1. No evidence of proximal pulmonary embolus. 2. There is ground glass and patchy alveolar infiltrate in the right upper lobe, right middle lobe, a nd there is streaky atelectasis and/or infiltrate in both posterior lower lobes. POS: [facility]
[2018-09-04 00:08] VITALS: BMI 37.1
[2018-09-04] MEDS ORDERED: Sodium Chloride 0.9% 1,000 ML IV SCH ×2 (00:50→02:00)
[2018-09-04] MEDS ORDERED: Ondansetron PF 4 MG/2 ML Vial IVP PRN ×3 (00:50→03:18)
[2018-09-04] MEDS ORDERED: Ondansetron ODT 4 MG TAB SL PRN ×2 (00:50→01:47)
[2018-09-04] MEDS ORDERED: Acetaminophen 325 MG TAB PO PRN ×3 (00:50→03:18)
[2018-09-04] MEDS ORDERED: Cefepime 1 GM in Sodium Chloride 0.9% 100 ML IVPB SCH (02:00)
[2018-09-04] MEDS ORDERED: Bisacodyl 5 MG TAB PO PRN (03:18)
[2018-09-04] MEDS ORDERED: HYDROcodone/Acetaminophen 5/325 mg Tablet PO PRN (03:18)
--- NOTE | 2018-09-04 04:24 | HP ---
PRIMARY CARE PHYSICIAN: Elinor Patel MD CHIEF COMPLAINT: Shortness of breath. HISTORY OF PRESENT ILLNESS: Mr. Cuevas is a 42-year-old male with no significant past medical history, who came to the ER for shortness of breath. The patient was admitted and discharged on 08/26/2018 for pneumonia, multifocal, MARYBETH, and sepsis. At that time, Pulmonary was consulted and patient started to improve eventually. Echocardiogram was normal. The patient was eventually discharged on Augmentin. The patient reports that he did complete course of Augmentin. The patient reports that over the past few days, especially yesterday, the patient was having shortness of breath. The patient also reported right-sided chest pain whenever he breathes and it was getting worse. The patient denies any abdominal pain, nausea, vomiting, or diarrhea. The patient reports swelling, but denies any fever. The patient reports that he was taking his nebulizer. REVIEW OF SYSTEMS: A 10-point review of system negative other than mentioned in the HPI. MEDICATIONS: Include: 1. Ventolin. 2. Augmentin. 3. Mucinex. 4. Prednisone, which he already completed. PAST MEDICAL HISTORY: Nephrolithiasis, hypertension, and pneumonia. PAST SURGICAL HISTORY: Herniated disc surgery. SOCIAL HISTORY: The patient drinks socially. Denies any smoking or illicit drugs. FAMILY HISTORY: The patient denies any history of coronary artery disease or cancer. ALLERGIES: NO KNOWN ALLERGIES TO DRUGS. PHYSICAL EXAMINATION: VITAL SIGNS: Blood pressure 113/87, heart rate 103, respirations 18, O2 saturation 98% on room air. GENERAL: The patient is alert and seems to be sweating. HEAD: Atraumatic. EARS, NOSE, THROAT AND NECK: No lymphadenopathy. No discharge or bleeding noted. Extraocular movement of eyes intact. CARDIOVASCULAR: No murmurs, rubs, or gallops. Regular rate and rhythm. RESPIRATORY: Clear bilaterally. No wheezes noted. ABDOMEN: Soft, nontender. Bowel sounds positive. EXTREMITIES: Lower extremities, no edema noted. NEUROLOGICAL: The patient is alert. SKIN: No rashes noted. DIAGNOSTIC STUDIES: CT angiogram of the chest, no evidence for PE. There is ground glass and patchy alveolar infiltrate in the right upper lobe and right middle lobe and there is streaky atelectasis and/or infiltrates in both posterior lower lobes. LABORATORY DATA: White blood cell count 12.5, hemoglobin 13.8, hematocrit 42.9, and platelets 355. Sodium 140, potassium 4.1, chloride 105, carbon dioxide 25, BUN 22, creatinine 1.01, glucose 140. Troponin negative. Cultures pending. ASSESSMENT AND PLAN: 1. Suspected pneumonia. Bilateral pneumonia seem to be unresolved from last infection or maybe new on whole. 2. Leukocytosis. 3. The patient was given vancomycin, cefepime, and levofloxacin in the ER. The patient will be started on cefepime and levofloxacin. Follow up cultures. Nebulizer and oxygen p.r.n. 4. We will have p.r.n. medication in place at this point. 5. We will trend labs. 6. The patient is full code. 7. Medical power of title attorney, . 8. Deep venous thrombosis prophylaxis addressed. Job ID: [id number]
[2018-09-04 06:58] LABS: Anion Gap 12 mmol/L (10-20); BUN (Urea Nitrogen) 15 mg/dL (8.9-20.6); Calc. Creatinine Clearance 195 mL/min (70-130); Carbon Dioxide 21 mmol/L (22-29); Chloride 108 mmol/L (98-107); Estimated GFR-MDRD Greater than 90; Glucose 142 mg/dL (70-105); Potassium 4.7 mmol/L (3.5-5.1); Sodium 136 mmol/L (136-145)
[2018-09-04 08:00] LABS: #Eosinphils 0.1 thou/uL (0.0-0.7); #Lymphocytes 0.9 thou/uL (1.20-3.40); #Monocytes 0.1 thou/uL (0.11-0.59); %Basophils 0.1 % (0.0-1.0); %Eosinophils 0.7 % (0.0-10.0); %Lymphocytes 9.7 % (21.0-51.0); %Monocytes 1.1 % (0.0-10.0); %Neutrophils 88.4 % (42.0-75.0); Hemoglobin 13.1 g/dL (14.0-18.0); Mean Corpuscular HGB CONC 31.9 g/dL (32.0-36.0); Mean Corpuscular Hemoglobin 29.2 pg (27.0-31.0); Mean Corpuscular Volume 91.6 fL (78.0-98.0); Mean Platelet Volume 7.4 fL (7.4-10.4); Platelet Count 345 thou/uL (130-400); RBC Distribution Width 13.3 % (11.5-14.5); Red Blood Cell (RBC) Count 4.48 mill/uL (4.70-6.10); White Blood Cell (WBC) Count 9.1 thou/uL (4.8-10.8)
[2018-09-04] MEDS: Cefepime 2 GM in Sodium Chloride 0.9% 100 ML IVPB SCH ×2 (08:53→20:42)
[2018-09-04] MEDS: Heparin 5,000 UNITS/ML VIAL SC SCH ×3 (09:53→20:43)
--- NOTE | 2018-09-04 12:23 | CON ---
DATE OF CONSULTATION: HISTORY OF PRESENT ILLNESS: Nima Cuevas is a 42-year-old gentleman, who apparently works at [employer] at the [employer], who was just recently discharged from the hospital with bilateral bronchopneumonia, felt to be Streptococcus pneumoniae. He now presents with left-sided chest pain pleuritic in nature, coughing up some yellow sputum. Denies obvious fever or chills. His CAT scan shows extensive bilateral airspace pneumonia with multiple bullae, mainly in the right lung. His previous infection with Streptococcus pneumoniae was sensitive to pretty much all the antibiotics. In fact, he was discharged home on the of this month about a week ago or so with Augmentin 875 for 7 more days, prednisone, and a Ventolin inhaler. PAST MEDICAL HISTORY: Otherwise, unremarkable for any major medical problems, prior history of diabetes, and hypertension. Primary care physician a [facility]. His past medical history from the previous note he says he has hypertension, but the patient is not taking any medication. PREVIOUS SURGERIES: Some kind of back surgery. SOCIAL HISTORY: Alcohol, none. ALLERGIES: NONE. REVIEW OF SYSTEMS: Otherwise, 10-point negative. PHYSICAL EXAMINATION: VITAL SIGNS: Blood pressure is 103/74, temperature 97, pulse 87, respiratory rate 16. CHEST: Decreased breath sounds. Minimal rhonchi. CARDIAC: Normal S1 and S2. No gallops. ABDOMEN: No masses. LABORATORY DATA: White count is 9000, hemoglobin and hematocrit of 13 and 41, platelet count is 345. normal. Lytes are normal. IMPRESSION: 1. Bilateral bronchopneumonia. 2. Bilateral cystic disease. 3. Obesity. 4. Hypertension. PLAN: Await sputum cultures. Rather surprisingly, he failed treatment on adequate coverage for Streptococcus pneumoniae. I have added empirically Zyvox to pretty much all the antibiotics. I will notify Dr. Mckeon in the morning. Job ID: [id number]
--- NOTE | 2018-09-04 16:17 | PDOC.PN ---
- Subjective Encounter Start Date: 09/04/18 Encounter Start Time: 14:30 Mr. Cuevas was seen today in follow-up of pneumonia. He says he continues to have some pain in his right side, primarily when he takes in a deep breath. He does not have much cough now. - Objective Resuscitation Status - Order Detail: 09/04/18 03:18 Resuscitation Status Routine Resuscitation Status: FULL: Full Resuscitation MAR Reviewed: Yes Vital Signs & Weight: Vital Signs (12 hours) Temp Pulse Resp BP Pulse Ox 09/04/18 07:31 97.6 F 87 16 103/74 94 L 09/04/18 05:05 97.4 F L 90 18 111/74 94 L Weight Weight 259 lb 3.2 oz I&O: 09/03/18 09/04/18 09/05/18 06:59 06:59 06:59 Intake Total 1055 Balance 1055 Result Diagrams: 09/04/18 07:46 09/04/18 05:34 Phys Exam - Physical Examination HEENT: PERRLA Respiratory: no wheezing, no rales, no rhonchi Coarse breath sounds bilaterally Cardiovascular: RRR, no significant murmur, no rub Gastrointestinal: soft, non-tender, no distention, positive bowel sounds Musculoskeletal: no edema Dx/Plan (1) Pneumonia, community acquired Code(s): J18.9 - PNEUMONIA, UNSPECIFIED ORGANISM Status: Acute (2) Pleurisy Code(s): R09.1 - PLEURISY Status: Acute (3) Obesity (BMI 30-39.9) Code(s): E66.9 - OBESITY, UNSPECIFIED Status: Chronic - Plan * Pneumonia- is supect this is resolving, and not a new infection- continue as per [facility] reommnedations * Left sided chest pain- Suspected Pleurisy- treat symptomatically * Hopefully home in the AM.
[2018-09-04] MEDS: Linezolid 600 MG TAB PO SCH (21:28)
[2018-09-05] MEDS: Linezolid 600 MG TAB PO SCH ×2 (09:06→22:11)
[2018-09-05] MEDS: Cefepime 2 GM in Sodium Chloride 0.9% 100 ML IVPB SCH ×2 (09:06→22:11)
[2018-09-05] MEDS: Heparin 5,000 UNITS/ML VIAL SC SCH ×3 (09:07→22:12)
--- NOTE | 2018-09-05 09:43 | PRG ---
DATE OF SERVICE: 09/05/2018 SUBJECTIVE: Mr. Cuevas was seen and examined this morning. He feels better than yesterday. His antibiotic coverage was extended yesterday. He says he did feel better upon going home 10 days ago, but had a relapse in symptoms shortly afterward and been trying to tough it out at home. He did take his antibiotics as prescribed. PHYSICAL EXAMINATION: VITAL SIGNS: His temperature is 97.9, pulse 76, respirations 17, O2 saturation 95% on room air, blood pressure 124/84. HEENT: Unremarkable. NECK: No JVD. LUNGS: He has inspiratory crackles, which are more profound on the right than the left base. CARDIAC: S1, S2. Regular. ABDOMEN: Soft. EXTREMITIES: No edema. LABORATORY DATA: White blood cell count 9.1, hematocrit 41.1, and platelet count 345. Sodium 136, potassium 4.7, chloride 108, CO2 of 21, BUN 15, creatinine 0.8, glucose 142. I reviewed the CT scan. I do not see any evidence of a parapneumonic effusion. ASSESSMENT: Pneumococcal pneumonia. I am not convinced that this is a secondary or resistant infection. He seems to be having more pleuritic symptoms than anything else. RECOMMENDATION: For the time being, continue the current Zyvox, cefepime and Levaquin regimen. I will add some low-dose steroids and some ibuprofen to treat his pleuritic symptoms. I will follow with you. Job ID: [id number]
[2018-09-05] MEDS: methylPREDNISolone Sod Succ 40 MG VIAL IVP SCH ×3 (11:47→23:49)
[2018-09-05] MEDS: Ibuprofen 600 MG TAB PO SCH ×2 (14:24→22:11)
--- NOTE | 2018-09-05 15:50 | PDOC.PN ---
- Subjective Encounter Start Date: 09/05/18 Encounter Start Time: 13:00 Mr. Cuevas was seen today in follow-up of Pneumonia. He says he feels better. He says he is beginning to cough up some phlem. - Objective Resuscitation Status - Order Detail: 09/04/18 03:18 Resuscitation Status Routine Resuscitation Status: FULL: Full Resuscitation MAR Reviewed: Yes Vital Signs & Weight: Vital Signs (12 hours) Temp Pulse Resp BP Pulse Ox 09/05/18 12:00 97.6 F 89 19 116/82 95 09/05/18 09:15 95 09/05/18 07:28 97.9 F 76 17 124/84 95 09/05/18 05:53 18 09/05/18 05:13 97.5 F L 71 18 121/82 97 Weight Weight 259 lb 3.2 oz I&O: 09/04/18 09/05/18 09/06/18 06:59 06:59 06:59 Intake Total 1055 680 Balance 1055 680 Result Diagrams: 09/04/18 07:46 09/04/18 05:34 Phys Exam - Physical Examination HEENT: PERRLA Respiratory: no wheezing, no rhonchi + coarse breath sounds on the left base Cardiovascular: RRR, no significant murmur, no rub Gastrointestinal: soft, non-tender, positive bowel sounds Musculoskeletal: no edema Dx/Plan (1) Pneumonia, community acquired Code(s): J18.9 - PNEUMONIA, UNSPECIFIED ORGANISM Status: Acute (2) Pleurisy Code(s): R09.1 - PLEURISY Status: Acute (3) Obesity (BMI 30-39.9) Code(s): E66.9 - OBESITY, UNSPECIFIED Status: Chronic - Plan * Pneumonia- clinically improving- will continue with Zyvox, and IV steroids as per PCCM * Pleurisy- symptom relief with steroids, and NSAID's * Disposition as per Pulmonary.
[2018-09-06] MEDS: methylPREDNISolone Sod Succ 40 MG VIAL IVP SCH (06:59)
[2018-09-06] MEDS: Ibuprofen 600 MG TAB PO SCH ×3 (07:00→22:14)
[2018-09-06] MEDS: Heparin 5,000 UNITS/ML VIAL SC SCH ×3 (08:37→22:14)
[2018-09-06] MEDS: Linezolid 600 MG TAB PO SCH (08:37)
[2018-09-06] MEDS: Cefepime 2 GM in Sodium Chloride 0.9% 100 ML IVPB SCH (08:38)
--- NOTE | 2018-09-06 09:05 | PRG ---
DATE OF SERVICE: 09/06/2018 SUBJECTIVE: He is having much less chest pain and pleurisy. OBJECTIVE: VITAL SIGNS: Temperature 97.4, pulse 80, respirations 20, O2 saturation 95%, and blood pressure /82. HEENT: Unremarkable. NECK: No JVD. CHEST: Clear anteriorly. CARDIAC: S1, S2. Regular. ABDOMEN: Soft. EXTREMITIES: No edema. LABORATORY DATA: His cultures show no growth to date. ASSESSMENT: Previous pneumonia. I think now we are just dealing with some post pleuritic type chest pain. RECOMMENDATIONS: I want to scale him back to oral antibiotics today. I would think that he would be safe for discharge tomorrow, we will taper his steroids over a week and continue ibuprofen as needed for the pain. Job ID: [id number]
[2018-09-06] MEDS: predniSONE 20 MG TAB PO SCH (09:31)
[2018-09-06] MEDS: Cefdinir 300 MG CAP PO SCH (09:31)
--- NOTE | 2018-09-06 15:38 | PDOC.PN ---
- Subjective Encounter Start Date: 09/06/18 Encounter Start Time: 15:37 Mr. Cuevas was seen today in follow-up of Pneumonia. He does not have any complaints today he says his sputum is thinning out, and the pain has improved - Objective Resuscitation Status - Order Detail: 09/04/18 03:18 Resuscitation Status Routine Resuscitation Status: FULL: Full Resuscitation MAR Reviewed: Yes Vital Signs & Weight: Vital Signs (12 hours) Temp Pulse Resp BP Pulse Ox 09/06/18 08:37 95 09/06/18 07:16 97.4 F L 70 20 122/82 95 Weight Weight 259 lb 3.2 oz I&O: 09/05/18 09/06/18 09/07/18 06:59 06:59 06:59 Intake Total 680 1700 Balance 680 1700 Result Diagrams: 09/04/18 07:46 09/04/18 05:34 Phys Exam - Physical Examination HEENT: PERRLA Respiratory: no wheezing, no rales, no rhonchi, clear to auscultation bilateral Cardiovascular: RRR, no significant murmur, no rub Gastrointestinal: soft, non-tender, no distention, positive bowel sounds Musculoskeletal: no edema Dx/Plan (1) Pneumonia, community acquired Code(s): J18.9 - PNEUMONIA, UNSPECIFIED ORGANISM Status: Acute (2) Pleurisy Code(s): R09.1 - PLEURISY Status: Acute (3) Obesity (BMI 30-39.9) Code(s): E66.9 - OBESITY, UNSPECIFIED Status: Chronic - Plan * Pneumonia- resolving * He has been transitioned to Omnicef and oral steroids * Hopefully home tomorrow
[2018-09-07] MEDS: Ibuprofen 600 MG TAB PO SCH ×2 (07:16→13:19)
[2018-09-07] MEDS: Heparin 5,000 UNITS/ML VIAL SC SCH ×2 (07:57→13:21)
[2018-09-07] MEDS: Cefdinir 300 MG CAP PO SCH (07:59)
[2018-09-07] MEDS: predniSONE 20 MG TAB PO SCH (07:59)
--- NOTE | 2018-09-07 09:01 | PRG ---
DATE OF SERVICE: 09/07/2018 SUBJECTIVE: The patient is doing well, wants to go home. OBJECTIVE: VITAL SIGNS: On exam, temperature 96.5, pulse 70, respirations 20, O2 saturation 94% on room air, blood pressure 137/88. HEENT: Unremarkable. NECK: No JVD. LUNGS: Clear. CARDIAC: S1, S2, regular. ABDOMEN: Soft. EXTREMITIES: No edema. ASSESSMENT: The patient is doing extremely well as far as his post-pneumonia pleuritic chest pain is concerned. RECOMMENDATIONS: He needs to finish out 7 days of Omnicef and taper steroids over a couple weeks. He can take ibuprofen as needed for pain. He needs to see me in the office in 2 to 3 weeks. He is safe to go home today. Job ID: [id number]
--- NOTE | 2018-09-07 13:38 | PDOC.PN ---
- Subjective Encounter Start Date: 09/07/18 Encounter Start Time: 13:36 Mr. Cuevas was seen today in follow-up of pneumonia. He is clinically much improved. - Objective Resuscitation Status - Order Detail: 09/04/18 03:18 Resuscitation Status Routine Resuscitation Status: FULL: Full Resuscitation MAR Reviewed: Yes Vital Signs & Weight: Vital Signs (12 hours) Temp Pulse Resp BP Pulse Ox 09/07/18 11:16 97.7 F 70 16 127/85 94 L 09/07/18 08:00 94 L 09/07/18 07:35 97.5 F L 70 20 137/88 94 L Weight Weight 259 lb 3.2 oz I&O: 09/06/18 09/07/18 09/08/18 06:59 06:59 06:59 Intake Total 1700 1400 Balance 1700 1400 Result Diagrams: 09/04/18 07:46 09/04/18 05:34 Phys Exam - Physical Examination HEENT: PERRLA Respiratory: no wheezing, no rales, no rhonchi, clear to auscultation bilateral Cardiovascular: RRR, no significant murmur, no rub Gastrointestinal: soft, non-tender, no distention, positive bowel sounds Musculoskeletal: no edema Dx/Plan (1) Pneumonia, community acquired Code(s): J18.9 - PNEUMONIA, UNSPECIFIED ORGANISM Status: Acute (2) Pleurisy Code(s): R09.1 - PLEURISY Status: Acute (3) Obesity (BMI 30-39.9) Code(s): E66.9 - OBESITY, UNSPECIFIED Status: Chronic - Plan * Pneumonia- resolving * Stable for discharge home..
[2018-09-07 15:18] VITALS: BP 119/79; TEMP 97.5
--- NOTE | 2018-09-10 12:45 | DIS ---
DATE OF ADMISSION: 09/03/2018 DATE OF DISCHARGE: 09/07/2018 PRIMARY CARE PHYSICIAN: Elinor Patel MD DISCHARGE DISPOSITION: Home. PRIMARY DISCHARGE DIAGNOSES: 1. Community-acquired pneumonia. 2. Obesity. DISCHARGE MEDICATIONS: Include; 1. Omnicef 600 mg daily. 2. Mucinex 600 mg twice a day. 3. Prednisone taper over 2 weeks. 4. Ventolin inhaler. CODE STATUS: Full code. ALLERGIES: NO KNOWN DRUG ALLERGIES. PROCEDURES: Procedures done during the admission: The patient had a CT angiogram of the chest, which was negative for pulmonary embolus and there was a ground-glass alveolar infiltrate in the right upper lobe, middle lobe, and some streaky atelectasis and/or infiltrate in both lower lobes. HOSPITAL COURSE: Mr. Cuevas is a pleasant 42-year-old gentleman, who presented to the emergency room with complaints of cough and shortness of breath as well as pleuritic left-sided chest pain. He was recently discharged from the hospital for community-acquired pneumonia, which was fairly severe. His symptoms had actually gotten a little bit better but then worsened again. For this reason, Pulmonology was consulted on this admission. He was evaluated and Zyvox was added to his regimen. Sputum cultures had grown gram-positive cocci in both pairs as well as clusters. He improved over the next couple of days and was subsequently able to be discharged home on Omnicef. He is to follow up with his primary care physician in approximately 1 week. Job ID: [id number]
== END 2018-09-07 15:19 | disposition home or self-care (01) | DRG 195 ==
LOC: ERS 20:37 → T4-A 23:48
PROVIDERS: ADMIT Family Medicine; ATTEND Family Medicine
DX: J18.9 Pneumonia, unspecified organism (principal); I10 Essential (primary) hypertension; E66.9 Obesity, unspecified; Z68.37 Body mass index [BMI] 37.0-37.9, adult; Z87.01 Personal history of pneumonia (recurrent); Z79.899 Other long term (current) drug therapy; Z79.52 Long term (current) use of systemic steroids
CPT/HCPCS: 36415; 71046; 71275; 80048; 80053; 82550; 84484; 85025; 85379; 87040; 87070; 87205; 93005; 96361; 96365; 96368; 96375; J0692; J1100; J1644; J1885; J1956; J2920; J3010; J3370; J7050; Q9966

== ENCOUNTER 2018-11-19 18:00 | Outpatient (CLI) | payer BC | END 2018-11-19 18:01 | disposition home or self-care (01) | LOC: SLEEPLAB 18:00 | PROVIDERS: ATTEND Internal Medicine Critical Care Medicine | DX: G47.33 Obstructive sleep apnea (adult) (pediatric) (principal); R53.83 Other fatigue; R06.83 Snoring; G47.10 Hypersomnia, unspecified | CPT/HCPCS: 95806 ==

== ENCOUNTER 2019-01-20 14:50 | Emergency (ER) | payer BC ==
--- NOTE | 2019-01-20 15:39 | RAD ---
EXAM: Chest Two Views 01/20/2019 3:36 PM HISTORY: Cough COMPARISON: Radiograph dated January 07, 2019 FINDINGS: Heart: Upper limits of normal in size Pulmonary vessels: Normal. Costophrenic angles: Clear. Lungs: Stable calcified granuloma in the left midlung Pneumothorax: None. Osseous structures:Intact. Additional findings: None. IMPRESSION: No significant acute intrathoracic disease.
== END 2019-01-20 17:00 | disposition home or self-care (01) ==
LOC: ERS 14:50
DX: J45.909 Unspecified asthma, uncomplicated (principal); Z87.891 Personal history of nicotine dependence
CPT/HCPCS: 71046; 94640; J7620

== ENCOUNTER 2019-09-28 19:30 | Outpatient (CLI) | payer BC | END 2019-09-28 19:31 | disposition home or self-care (01) | LOC: SLEEPLAB 19:30 | PROVIDERS: ATTEND Internal Medicine Critical Care Medicine | DX: G47.33 Obstructive sleep apnea (adult) (pediatric) (principal); J45.909 Unspecified asthma, uncomplicated | CPT/HCPCS: 95811 ==

== ENCOUNTER 2021-05-26 08:05 | Outpatient (CLI) | payer BC | END 2021-05-26 08:06 | disposition home or self-care (01) | LOC: BICMRI 08:05 | PROVIDERS: ATTEND Orthopaedic Surgery Orthopaedic Surgery of the Spine | DX: M47.26 Other spondylosis with radiculopathy, lumbar region (principal); M79.604 Pain in right leg; Z98.890 Other specified postprocedural states | CPT/HCPCS: 72158 ==

== ENCOUNTER 2025-02-06 08:38 | Outpatient (CLI) | payer BC | END 2025-02-06 08:39 | disposition home or self-care (01) | LOC: SCSRAD 08:38 | PROVIDERS: ATTEND Nurse Practitioner Family | DX: R05.1 Acute cough (principal) | CPT/HCPCS: 71046 ==